=== PATIENT | male | born 1950 | race Caucasian/White ===

== ENCOUNTER 2018-12-07 17:48 | Inpatient (IN) | payer MEDICARE, MEDICAID ==
[2018-12-07 17:48] VITALS: BMI 47.1
[2018-12-07] MEDS ORDERED: Digoxin 500 mcg/2ml (0.5 mg/2ml) Inj ONE (18:19)
[2018-12-07] MEDS ORDERED: Sodium Chloride 0.9% 500 ML IV ONE (18:26)
[2018-12-07] MEDS ORDERED: Digoxin 500 mcg/2ml (0.5 mg/2ml) Inj IVP ONE (18:29)
[2018-12-07 18:43] LABS: BASO # 0.1 K/uL (0.0-0.2); BASO % 0.4 % (0.0-2.0); EOS # 0.1 K/uL (0.0-0.7); HEMOGLOBIN 15.1 g/dL (12.0-18.0); LYMPH # 0.8 K/uL (1.0-4.3); LYMPH % 5.7 % (20.0-40.0); MEAN CELL VOLUME 81.8 fL (80.0-94.0); MEAN CORPUSCULAR HEMOGLOBIN 25.4 pg (27.0-31.0); MONO # 0.3 K/uL (0.0-0.8); MONO % 2.3 % (0.0-10.0); NEUT # 13.4 K/uL (1.8-7.0); NEUT % 90.6 % (50.0-75.0); NRBC % 0.1 % (0.0-2.0); PLATELET COUNT 328 K/uL (130-400); RBC 5.95 Mil/uL (4.40-5.90); RED CELL DISTRIBUTION WIDTH 17.6 % (11.5-14.5); WHITE BLOOD COUNT 14.8 K/uL (4.8-10.8)
[2018-12-07 18:51] LABS: INR 1.6
[2018-12-07 18:56] LABS: ALB/GLOB RATIO 1.4 (1.0-2.1); ALBUMIN 4.2 g/dL (3.5-5.0); ALT/SGPT 30 U/L (21-72); AST/SGOT 33 U/L (17-59); BLOOD UREA NITROGEN 28 mg/dL (9-20); GFR NON-AFRICAN AMERICAN 43
--- NOTE | 2018-12-07 18:57 | RAD ---
Date of service: 12/07/2018 HISTORY: chest portable COMPARISON: No prior. FINDINGS: LUNGS: Abnormal opacity at right lung base. Pleural-based opacity lateral mid left lung. PLEURA: Small bilateral pleural effusions. Small to moderate left pneumothorax. CARDIOVASCULAR: No aortic atherosclerotic calcification present. Normal cardiac size. No pulmonary vascular congestion. OSSEOUS STRUCTURES: No significant abnormalities. VISUALIZED UPPER ABDOMEN: Normal. OTHER FINDINGS: None. IMPRESSION: Small to moderate left pneumothorax. Small bilateral pleural effusion. Abnormal opacity at right base. Rule out pneumonia. Smooth pleural based opacity mid lateral left lung common nonspecific. Follow-up advised. Findings were discussed by telephone with Dr. Henriquez at 6:50 p.m. on 12/07/2018.
[2018-12-07 19:07] LABS: B-TYPE NATRIURETIC PEPTIDE 377 pg/mL (0-900)
[2018-12-07 19:19] LABS: BANDS 5 % (0-2); LYMPHOCYTE 5 % (20-40); MONOCYTE 7 % (0-10); NEUTROPHIL 83 % (50-75); TOTAL CELLS COUNTED 100
[2018-12-07 19:21] LABS: MICROCYTOSIS SLIGHT; PLATELET ESTIMATE NORMAL (NORMAL)
[2018-12-07 19:22] LABS: LARGE PLATELETS PRESENT; PLATELET CLUMPS PRESENT
--- NOTE | 2018-12-07 19:38 | C.PDOC ---
History Of Present Illness 68 year old male with PMHx of CHF, HTN, GERD, diabetes and Afib on Coumadin and Digoxin presents to the ED complaining of shortness of breath for the last 24 hours. Also complains of palpitations, rapid heartbeat, and vomiting for one day. Reports compliance with medications. Denies any diarrhea, abdominal pain, fever, or chills. Time Seen by Provider: 12/07/18 18:25 Chief Complaint (Nursing): Shortness Of Breath History Per: Patient History/Exam Limitations: no limitations Onset/Duration Of Symptoms: Days (1) Current Symptoms Are (Timing): Still Present Current Respiratory Medications: See Home Med List Associated Symptoms: Other (vomiting, palpitations). denies: Fever, Chills Additional History Per: Prior Records Past Medical History Reviewed: Historical Data, Nursing Documentation, Vital Signs Vital Signs: Last Vital Signs Temp 98.3 F 12/07/18 17:56 Pulse 120 H 12/07/18 19:15 Resp 22 12/07/18 19:15 BP 98/42 L 12/07/18 19:15 Pulse Ox 100 12/07/18 19:15 - Medical History PMH: Atrial Fibrillation, CHF, HTN, Peripheral Edema Surgical History: Denies: Pacemaker Other Surgeries: Hx of surgeries - [facility] Procedures CORONAR ARTERIOGR-2 CATH (06/20/15) LEFT HEART CARDIAC CATH (06/20/15) LT HEART ANGIOCARDIOGRAM (06/20/15) Family History: States: No Known Family Hx - Social History Hx Alcohol Use: No Hx Substance Use: No - Immunization History Hx Tetanus Toxoid Vaccination: No Hx Influenza Vaccination: No Hx Pneumococcal Vaccination: No Review Of Systems Constitutional: Negative for: Fever, Chills Cardiovascular: Positive for: Palpitations Respiratory: Positive for: Shortness of Breath Gastrointestinal: Positive for: Vomiting. Negative for: Abdominal Pain, Diarrhea Physical Exam - Physical Exam Appears: Non-toxic, Other (acutely ill, acute short of breath ) Skin: No Normal Color, No Rash, Other (dusky colored skin ) Head: Atraumatic Eye(s): bilateral: Normal Inspection Neck: Supple Chest: Symmetrical Cardiovascular: Rhythm Irregular (160/170 rapid afib ) Respiratory: Rales (B/L rales to apices ) Gastrointestinal/Abdominal: Soft, No Tenderness, No Guarding, No Rebound Neurological/Psych: Oriented x3, Normal Speech Gait: Steady ED Course And Treatment - Laboratory Results Result Diagrams: 12/07/18 18:39 12/07/18 18:39 Lab Results: PT 17.0 SECONDS (9.7-12.2) H 12/07/18 18:39 INR 1.6 12/07/18 18:39 APTT 29 SECONDS (21-34) 12/07/18 18:39 Troponin I < 0.0120 ng/mL (0.00-0.120) 12/07/18 18:39 NT-Pro-B Natriuret Pep 377 pg/mL (0-900) 12/07/18 18:39 Total Bilirubin 0.8 mg/dL (0.2-1.3) 12/07/18 18:39 AST 33 U/L (17-59) 12/07/18 18:39 ALT 30 U/L (21-72) 12/07/18 18:39 Alkaline Phosphatase 76 U/L (38-126) 12/07/18 18:39 Total Protein 7.3 g/dL (6.3-8.3) 12/07/18 18:39 Albumin 4.2 g/dL (3.5-5.0) 12/07/18 18:39 Globulin 3.0 gm/dL (2.2-3.9) 12/07/18 18:39 Albumin/Globulin Ratio 1.4 (1.0-2.1) 12/07/18 18:39 O2 Sat by Pulse Oximetry: 100 (RA) Pulse Ox Interpretation: Normal Disposition - Disposition Forms: [facility] (Chinese) - Scribe Statement The provider has reviewed the documentation as recorded by the Scribkathleen Montgomery All medical record entries made by the Yrisibe were at my direction and personall y dictated by me. I have reviewed the chart and agree that the record accurately reflects my personal performance of the history, physical exam, medical decision making, and the department course for this patient. I have also personally directed, reviewed, and agree with the discharge instructions and disposition.
--- NOTE | 2018-12-07 19:40 | C.PDOC ---
History Of Present Illness 68 year old male with PMHx of CHF, HTN, enlarged prostate, diabetes and Afib on Coumadin and Digoxin presents to the ED complaining of shortness of breath for the last 24 hours. Also complains of palpitations, rapid heartbeat, and vomiting for one day. Reports compliance with medications. Denies any diarrhea, abdominal pain, fever, or chills. Time Seen by Provider: 12/07/18 18:25 Chief Complaint (Nursing): Shortness Of Breath History Per: Patient History/Exam Limitations: no limitations Onset/Duration Of Symptoms: Days (1) Current Symptoms Are (Timing): Still Present Current Respiratory Medications: See Home Med List Associated Symptoms: Heart Racing, Other (palpitations, vomiting ). denies: Fever, Chills Past Medical History Reviewed: Historical Data, Nursing Documentation, Vital Signs Vital Signs: Last Vital Signs Temp 98.3 F 12/07/18 17:56 Pulse 120 H 12/07/18 19:15 Resp 22 12/07/18 19:15 BP 98/42 L 12/07/18 19:15 Pulse Ox 100 12/07/18 19:15 - Medical History PMH: Atrial Fibrillation, CHF, HTN, Peripheral Edema Surgical History: Denies: Pacemaker Other Surgeries: Hx of surgeries - [facility] Procedures CORONAR ARTERIOGR-2 CATH (06/20/15) LEFT HEART CARDIAC CATH (06/20/15) LT HEART ANGIOCARDIOGRAM (06/20/15) Family History: States: No Known Family Hx - Social History Hx Alcohol Use: No Hx Substance Use: No - Immunization History Hx Tetanus Toxoid Vaccination: No Hx Influenza Vaccination: No Hx Pneumococcal Vaccination: No Review Of Systems Constitutional: Negative for: Fever, Chills Cardiovascular: Positive for: Palpitations, Other (heart racing) Respiratory: Positive for: Shortness of Breath Gastrointestinal: Positive for: Vomiting. Negative for: Abdominal Pain, D iarrhea Physical Exam - Physical Exam Appears: Non-toxic, Other (acutely ill, acute shortness of breath) Skin: No Normal Color (dusky colored skin) Head: Normacephalic Eye(s): bilateral: Normal Inspection Nose: Normal Oral Mucosa: Moist Neck: Supple Chest: Symmetrical Cardiovascular: Other (160-170 rapid afib ) Respiratory: Rales (B/L rales to apices ), No Rhonchi, No Wheezing Gastrointestinal/Abdominal: Soft, No Tenderness, No Guarding, No Rebound Neurological/Psych: Oriented x3, Normal Speech Gait: Steady ED Course And Treatment - Laboratory Results Result Diagrams: 12/07/18 18:39 12/07/18 18:39 Lab Results: PT 17.0 SECONDS (9.7-12.2) H 12/07/18 18:39 INR 1.6 12/07/18 18:39 APTT 29 SECONDS (21-34) 12/07/18 18:39 Troponin I < 0.0120 ng/mL (0.00-0.120) 12/07/18 18:39 NT-Pro-B Natriuret Pep 377 pg/mL (0-900) 12/07/18 18:39 Total Bilirubin 0.8 mg/dL (0.2-1.3) 12/07/18 18:39 AST 33 U/L (17-59) 12/07/18 18:39 ALT 30 U/L (21-72) 12/07/18 18:39 Alkaline Phosphatase 76 U/L (38-126) 12/07/18 18:39 Total Protein 7.3 g/dL (6.3-8.3) 12/07/18 18:39 Albumin 4.2 g/dL (3.5-5.0) 12/07/18 18:39 Globulin 3.0 gm/dL (2.2-3.9) 12/07/18 18:39 Albumin/Globulin Ratio 1.4 (1.0-2.1) 12/07/18 18:39 Lab Interpretation: Abnormal (WBC 14.8 with 90 segs, BUN 28, Cr 1.6, Normal troponin and BNP, Dig level 1.2, INR 1.6) ECG: Interpreted By Me ECG Rhythm: Atrial Fibrillation (with rapid ventricular rate. Inferior and sep angle infarcts) O2 Sat by Pulse Oximetry: 100 Pulse Ox Interpretation: Normal (on NRB) - Radiology CXR: Viewed By Me, Read By Radiologist (Bilateral pleural effusions with small left pneumothorax) Progress Note: Patient treated in ED with Digoxin 0.5mg IVP, Lasix 40mg IVP, NSS 500ml and Cardizem 10mg IVP. Continued to have a heart rate of 160-170 for 30 minutes associated with hypotension. Gradually heart rate improved to 110-120 but BP remains 95/60. Barbour inserted and initially drained 300ml of urine. No additional urine output noted. 7:00 pm Case discussed with Dr Morales and tressa sesay was seen in ED by Dr Rosenberg (life science technical officer). Condition now stable and somewhat improved. Patient to be admitted to tele. Orders given to nursing by Dr Morales. Reevaluation Time: 19:48 Reassessment Condition: Improved (BP 98/65, HR 105, Barbour draining clear urine.) Critical Care Time - Critical Care Note Total Time (in mins): 90 Documented critical care: time excludes all time spent performing seperately billable procedures. Disposition - Disposition Disposition: HOSPITALIZED Disposition Time: 19:50 Condition: IMPROVED - POA Present On Arrival: None - Clinical Impression Clinical Impression: A-fib, Pleural effusion, Pneumothorax on left - Scribe Statement The provider has reviewed the documentation as recorded by the Scribe Dea Montgomery All medical record entries made by the Scribe were at my direction and per sonally dictated by me. I have reviewed the chart and agree that the record accurately reflects my personal performance of the history, physical exam, medical decision making, and the department course for this patient. I have also personally directed, reviewed, and agree with the discharge instructions and disposition.
[2018-12-07] MEDS ORDERED: diltiaZEM 60 mg ER Cap PO SCH (22:00)
[2018-12-07] MEDS: (Novolog) Insulin Aspart, Recombinant 100 u/ml 10 ml vial SC SCH (22:27)
[2018-12-08 02:08] LABS: CK-MB 1.06 ng/mL (0.0-3.38); TROPONIN I 0.071 ng/mL (0.00-0.120)
[2018-12-08] MEDS ORDERED: Glucagon Recombinant 1 mg Inj IM PRN (07:01)
[2018-12-08] MEDS ORDERED: Dextrose 50% SYRINGE Inj (50 ml) IV PRN (07:01)
[2018-12-08] MEDS ORDERED: LINACLOTIDE 75 MCG PO SCH ×3 (07:30)
--- NOTE | 2018-12-08 07:34 | CP.PCM.CON ---
History of Present Illness - History of Present Illness History of Present Illness: I was asked to see patient by Dr Morales Patient seen 12/08/18 0732 Patient is a 68 year old male with HTN, COPD, chronic atrial fibrillation who presents with dsypnea. Patient had a cardiac cath in 2014 revealing nonobstructive CAD and normal LV function. Patient presents with acute dsypnea. found to be in afib with RVR. Patient responded to cardizem. currently less dyspnea. Review of Systems - Constitutional Constitutional: absent: As Per HPI, Anorexia, Chills, Daytime Sleepiness, Excessive Sweating, Fatigue, Fever, Frequent Falls, Headache, Increased Appe tite, Lethargy, Malaise, Night Sweats, Snoring, Sleep Apnea, Weight Gain, Weight Loss, Weakness, Other - EENT Eyes: absent: As Per HPI, Blind Spots, Blurred Vision, Change in Vision, Decreased Night Vision, Diplopia, Discharge, Dry Eye, Exophthalmos, Floaters, Irritation, Itchy Eyes, Loss of Peripheral Vision, Pain, Photophobia, Requires Corrective Lenses, Sees Flashes, Spots in Vision, Tunnel Vision, Other Visual Disturbances, Loss of Vision, Other Ears: absent: As Per HPI, Decreased Hearing, Ear Discharge, Ear Pain, Tinnitus, Abnormal Hearing, Disequilibrium, Dizziness, Other Nose/Mouth/Throat: absent: As Per HPI, Epistaxis, Nasal Congestion, Nasal Discharge, Nasal Obstruction, Nasal Trauma, Nose Pain, Post Nasal Drip, Sinus Pain, Sinus Pressure, Bleeding Gums, Change in Voice, Dental Pain, Dry Mouth, Dysphagia, Halitosis, Hoarsness, Lip Swelling, Mouth Lesions, Mouth Pain, Odynophagia, Sore Throat, Throat Swelling, Tongue Swelling, Facial Pain, Neck Pain, Neck Mass, Other - Cardiovascular Cardiovascular: Dyspnea, Palpitations - Respiratory Respiratory: Dyspnea - Gastrointestinal Gastrointestinal: absent: As Per HPI, Abdominal Pain, Belching, Bloating, Change in Bowel Habits, Change in Stool Character, Coffee Ground Emesis, Constipation, Cramping, Diarrhea, Dyspepsia, Dysphagia, Early Satiety, Excessive Flatus, Fecal Incontinence, Heartburn, Hematemesis, Hematochezia, Loose Stools, Melena, Nausea, Odynophagia, Temesmus, Vomiting, Other - Genitourinary Genitourinary: absent: As Per HPI, Change in Urinary Stream, Difficulty Urina ting, Dysuria, Flank Pain, Hematuria, Pyuria, Nocturia, Urinary Incontinence, Urinary Frequency, Urinary Hesitance, Urinary Urgency, Voiding Freq/Small Amts, Freq UTI, Hx Renal/Bladder Calculi, Hx /Renal Surgery, Bladder Distension, Other - Musculoskeletal Musculoskeletal: absent: As Per HPI, Abnormal Gait, Arthralgias, Atrophy, Back Pain, Deformity, Joint Swelling, Limited Range of Motion, Loss of Height, Muscle Cramps, Muscle Weakness, Myalgias, Neck Pain, Numbness, Radiating Pain into Limb, Stiffness, Tingling, Other - Integumentary Integumentary: absent: As Per HPI, Acne, Alopecia, Bleeding Lesions, Change in Hair, Change in Nails, Change in Pigmentation, Changing Lesions, Dry Skin, Erythema, Furuncle, Hirsutism, Lesions, New Lesions, Non-Healing Lesions, Photosensitivity, Pruritus, Rash, Skin Pain, Skin Ulcer, Sores, Striae, Swelling, Unusual Bruising, Wounds, Jaundice, Other - Neurological Neurological: absent: As Per HPI, Abnormal Gait, Abnormal Hearing, Abnormal Movements, Abnormal Speech, Behavioral Changes, Burning Sensations, Confusion, Convulsions, Disequilibrium, Dizziness, Numbness, Focal Weakness, Frequent Falls, Headaches, Lack of Coordination, Loss of Vision, Memory Loss, Paresthesias, Radicular Pain, Restless Legs, Sensory Deficit, Syncope, Tingling, Tremor, Vertigo, Weakness, Other Visual Disturbances, Other - Psychiatric Psychiatric: absent: As Per HPI, Abnormal Sleep Pattern, Anhedonia, Anxiety, Au ditory Hallucinations, Behavioral Changes, Change in Appetite, Change in Libido, Confusion, Depression, Difficulty Concentrating, Hallucinations, Homicidal Ideation, Hopelessness, Irritability, Memory Loss, Mood Swings, Panic Attacks, Paranoia, Suicidal Ideation, Visual Hallucinations, Tactile Hallucinations, Other - Endocrine Endocrine: absent: As Per HPI, Change in Body Appearance, Change in Libido, Cold Intolorance, Deepening of Voice, Excessive Sweating, Fatigue, Flushing, Heat Intolorance, Increase in Ring/Shoe/Hat Size, Palpitations, Polydipsia, Kayode yphagia, Polyuria, Other - Hematologic/Lymphatic Hematologic: absent: As Per HPI, Easy Bleeding, Easy Bruising, Lymphadenopathy, Other Past Patient History - Past Medical History & Family History Past Medical History?: Yes - Past Social History Smoking Status: Former Smoker - CARDIAC Hx Atrial Fibrillation: Yes Hx Congestive Heart Failure: Yes Hx Hypertension: Yes Hx Pacemaker: No Hx Peripheral Edema: Yes - PULMONARY Hx Respiratory Disorders: Yes Hx Asthma: Yes - NEUROLOGICAL Hx Neurological Disorder: No Hx Paralysis: No - HEENT Hx HEENT Problems: No - RENAL Hx Chronic Kidney Disease: No - ENDOCRINE/METABOLIC Hx Diabetes Mellitus Type 2: Yes - HEMATOLOGICAL/ONCOLOGICAL Hx Blood Transfusions: No Hx Blood Transfusion Reaction: No - INTEGUMENTARY Hx Dermatological Problems: No - MUSCULOSKELETAL/RHEUMATOLOGICAL Hx Musculoskeletal Disorders: Yes Hx Falls: No Hx Gout: Yes - GASTROINTESTINAL Hx Nausea: Yes - GENITOURINARY/GYNECOLOGICAL Hx Prostate Problems: Yes - PSYCHIATRIC Hx Substance Use: No - SURGICAL HISTORY Hx Surgeries: Yes Hx Orthopedic Surgery: Yes (LEFT LEG) - ANESTHESIA Hx Anesthesia: Yes Hx Anesthesia Reactions: No Hx Malignant Hyperthermia: No Meds Allergies/Adverse Reactions: Allergies Allergy/AdvReac Type Severity Reaction Status Date / Time No Known Allergies Allergy Verified 12/07/18 17:56 - Medications Medications: Current Medications Allopurinol (Zyloprim) 300 mg PO DAILY [facility] Carvedilol (Coreg) 6.25 mg PO BID [facility] Colchicine (Colocrys) 0.6 mg PO DAILY [facility] Dextrose (Dextrose 50% Inj) 0 ml IV STAT PRN; Protocol PRN Reason: Hypoglycemia Protocol Dextrose (Glutose 15) 0 gm PO ONCE PRN; Protocol PRN Reason: Hypoglycemia Protocol Digoxin (Lanoxin) 0.25 mg IVP Q24H [facility] Diltiazem HCl (Cardizem) 30 mg PO Q8 [facility] Last Admin: 12/08/18 05:56 Dose: 30 mg Finasteride (Proscar) 5 mg PO DAILY [facility] Furosemide (Lasix) 20 mg IVP BID [facility] Glucagon (Glucagen Diagnostic Kit) 0 mg IM STAT PRN; Protocol PRN Reason: Hypoglycemia Protocol Home Med (Linaclotide [Linzess]) 75 mcg PO ACB [facility] Home Med (Linagliptin [Tradjenta]) 5 mg PO DAILY [facility] Dextrose (Dextrose 5% In Water 1000 Ml) 1,000 mls @ 0 mls/hr IV .Q0M PRN; Protocol PRN Reason: Hypoglycemia Protocol Insulin Aspart (Novolog) 0 unit SC ACHS [facility]; Protocol Last Admin: 12/07/18 22:27 Dose: Not Given Lisinopril (Zestril) 20 mg PO DAILY [facility] Metformin HCl (Glucophage) 500 mg PO BID [facility] Pantoprazole Sodium (Protonix Ec Tab) 40 mg PO DAILY [facility] Tamsulosin HCl (Flomax) 0.4 mg PO DAILY [facility] Warfarin Sodium (Coumadin) 5 mg PO DAILY [facility] Physical Exam - Constitutional Appears: Non-toxic - Head Exam Head Exam: NORMAL INSPECTION - Eye Exam Eye Exam: Normal appearance - ENT Exam ENT Exam: Mucous Membranes Moist - Neck Exam Neck exam: Positive for: Full Rom - Respiratory Exam Respiratory Exam: Decreased Breath Sounds - Cardiovascular Exam Cardiovascular Exam: REGULAR RHYTHM - GI/Abdominal Exam GI & Abdominal Exam: Normal Bowel Sounds - Rectal Exam Rectal Exam: Deferred - Extremities Exam Extremities exam: Positive for: pedal edema - Back Exam Back exam: NORMAL INSPECTION - Neurological Exam Neurological exam: Alert, Oriented x3 - Psychiatric Exam Psychiatric exam: Normal Affect - Skin Skin Exam: Normal Color Results - Vital Signs Recent Vital Signs: Last Vital Signs Temp 98.0 F 12/07/18 23:55 Pulse 74 12/08/18 05:55 Resp 20 12/08/18 05:55 BP 121/67 12/08/18 05:55 Pulse Ox 98 12/08/18 05:55 - Labs Result Diagrams: 12/07/18 18:39 12/07/18 18:39 Labs: Laboratory Results - last 24 hr 12/07/18 12/07/18 12/07/18 18:29 18:39 18:39 WBC 14.8 H RBC 5.95 H Hgb 15.1 Hct 48.3 MCV 81.8 MCH 25.4 L MCHC 31.0 L RDW 17.6 H Plt Count 328 MPV 9.0 Neut % (Auto) 90.6 H Lymph % (Auto) 5.7 L Reagan % (Auto) 2.3 Eos % (Auto) 1.0 Baso % (Auto) 0.4 Neut # (Auto) 13.4 H Lymph # (Auto) 0.8 L Reagan # (Auto) 0.3 Eos # (Auto) 0.1 Baso # (Auto) 0.1 Neutrophils % (Manual) 83 H Band Neutrophils % 5 H Lymphocytes % (Manual) 5 L Monocytes % (Manual) 7 Platelet Estimate Normal Plt Clumps, EDTA Present Large Platelets Present Microcytosis (manual) Slight PT 17.0 H INR 1.6 APTT 29 Sodium Potassium Chloride Carbon Dioxide Anion Gap BUN Creatinine Est GFR ( Amer) Est GFR (Non-Af Amer) POC Glucose (mg/dL) 162 H Random Glucose Calcium Total Bilirubin AST ALT Alkaline Phosphatase Total Creatine Kinase CK-MB (Mass) Troponin I NT-Pro-B Natriuret Pep Total Protein Albumin Globulin Albumin/Globulin Ratio Digoxin 12/07/18 12/07/18 12/07/18 18:39 18:39 21:55 WBC RBC Hgb Hct MCV MCH MCHC RDW Plt Count MPV Neut % (Auto) Lymph % (Auto) Reagan % (Auto) Eos % (Auto) Baso % (Auto) Neut # (Auto) Lymph # (Auto) Reagan # (Auto) Eos # (Auto) Baso # (Auto) Neutrophils % (Manual) Band Neutrophils % Lymphocytes % (Manual) Monocytes % (Manual) Platelet Estimate Plt Clumps, EDTA Large Platelets Microcytosis (manual) PT INR APTT Sodium 138 Potassium 4.9 Chloride 99 Carbon Dioxide 28 Anion Gap 16 BUN 28 H Creatinine 1.6 H Est GFR ( Amer) 52 Est GFR (Non-Af Amer) 43 POC Glucose (mg/dL) 152 H Random Glucose 166 H Calcium 9.0 Total Bilirubin 0.8 AST 33 ALT 30 Alkaline Phosphatase 76 Total Creatine Kinase CK-MB (Mass) Troponin I < 0.0120 NT-Pro-B Natriuret Pep 377 Total Protein 7.3 Albumin 4.2 Globulin 3.0 Albumin/Globulin Ratio 1.4 Digoxin 1.2 12/08/18 12/08/18 00:46 06:20 WBC RBC Hgb Hct MCV MCH MCHC RDW Plt Count MPV Neut % (Auto) Lymph % (Auto) Reagan % (Auto) Eos % (Auto) Baso % (Auto) Neut # (Auto) Lymph # (Auto) Reagan # (Auto) Eos # (Auto) Baso # (Auto) Neutrophils % (Manual) Band Neutrophils % Lymphocytes % (Manual) Monocytes % (Manual) Platelet Estimate Plt Clumps, EDTA Large Platelets Microcytosis (manual) PT INR APTT Sodium Potassium Chloride Carbon Dioxide Anion Gap BUN Creatinine Est GFR ( Amer) Est GFR (Non-Af Amer) POC Glucose (mg/dL) 136 H Random Glucose Calcium Total Bilirubin AST ALT Alkaline Phosphatase Total Creatine Kinase 53 L CK-MB (Mass) 1.06 Troponin I 0.0710 NT-Pro-B Natriuret Pep Total Protein Albumin Globulin Albumin/Globulin Ratio Digoxin - EKG Data EKG Interpreted by: Myself Assessment & Plan (1) A-fib Assessment and Plan: will check echocardiogram to reassess LV function. maintain cardizem. will consider change to NOAC Status: Acute (2) Hypertension Assessment and Plan: well controlled Status: Acute
[2018-12-08 07:50] LABS: INR 1.8
[2018-12-08 08:04] LABS: BASO % 0.1 % (0.0-2.0); EOS # 0.1 K/uL (0.0-0.7); EOS % 0.5 % (0.0-4.0); LYMPH # 1.7 K/uL (1.0-4.3); LYMPH % 7.2 % (20.0-40.0); MEAN CELL VOLUME 82.3 fL (80.0-94.0); MEAN CORPUSCULAR HEMOGLOBIN 25.7 pg (27.0-31.0); MEAN CORPUSCULAR HGB CONC 31.2 g/dL (33.0-37.0); MEAN PLATELET VOLUME 9.4 fL (7.2-11.7); MONO # 1.6 K/uL (0.0-0.8); NEUT # 19.8 K/uL (1.8-7.0); NEUT % 85.2 % (50.0-75.0); PLATELET COUNT 268 K/uL (130-400); RBC 5.06 Mil/uL (4.40-5.90); RED CELL DISTRIBUTION WIDTH 17.1 % (11.5-14.5)
[2018-12-08 08:13] LABS: WHITE BLOOD COUNT 23.2 K/uL (4.8-10.8)
[2018-12-08 08:14] LABS: CALCIUM 8.7 mg/dl (8.6-10.4); CK-MB 1.03 ng/mL (0.0-3.38); TROPONIN I 0.042 ng/mL (0.00-0.120)
[2018-12-08] MEDS: (Novolog) Insulin Aspart, Recombinant 100 u/ml 10 ml vial SC SCH ×3 (09:16→22:17)
--- NOTE | 2018-12-08 09:19 | CP.PCM.PN ---
Subjective - Date & Time of Evaluation Date of Evaluation: 12/08/18 Time of Evaluation: 09:15 - Subjective Subjective: Progress note. Attending: Dr. Morales. Pt seen and examined at bedside. No acute distress. No events overnight. Cardiology workup in progress. SOB is better, denies chest pain. Objective - Vital Signs/Intake and Output Vital Signs (last 24 hours): Temp Pulse Resp BP Pulse Ox 97.2 F L 69 20 107/62 94 L 12/08/18 08:36 12/08/18 08:36 12/08/18 08:36 12/08/18 08:36 12/08/18 08:36 Intake and Output: 12/08/18 12/08/18 06:59 18:59 Output Total 500 Balance -500 - Medications Medications: Current Medications Allopurinol (Zyloprim) 300 mg PO DAILY [facility] Carvedilol (Coreg) 6.25 mg PO BID [facility] Colchicine (Colocrys) 0.6 mg PO DAILY [facility] Dextrose (Dextrose 50% Inj) 0 ml IV STAT PRN; Protocol PRN Reason: Hypoglycemia Protocol Dextrose (Glutose 15) 0 gm PO ONCE PRN; Protocol PRN Reason: Hypoglycemia Protocol Digoxin (Lanoxin) 0.25 mg IVP Q24H [facility] Diltiazem HCl (Cardizem) 30 mg PO Q8 [facility] Last Admin: 12/08/18 05:56 Dose: 30 mg Finasteride (Proscar) 5 mg PO DAILY [facility] Furosemide (Lasix) 20 mg IVP BID [facility] Glucagon (Glucagen Diagnostic Kit) 0 mg IM STAT PRN; Protocol PRN Reason: Hypoglycemia Protocol Home Med (Linaclotide [Linzess]) 75 mcg PO ACB [facility] Home Med (Linagliptin [Tradjenta]) 5 mg PO DAILY [facility] Dextrose (Dextrose 5% In Water 1000 Ml) 1,000 mls @ 0 mls/hr IV .Q0M PRN; Protocol PRN Reason: Hypoglycemia Protocol Insulin Aspart (Novolog) 0 unit SC ACHS [facility]; Protocol Last Admin: 12/07/18 22:27 Dose: Not Given Lisinopril (Zestril) 20 mg PO DAILY [facility] Metformin HCl (Glucophage) 500 mg PO BID [facility] Pantoprazole Sodium (Protonix Ec Tab) 40 mg PO DAILY [facility] Tamsulosin HCl (Flomax) 0.4 mg PO DAILY [facility] Warfarin Sodium (Coumadin) 5 mg PO DAILY [facility] - Labs Labs: 12/08/18 07:32 12/08/18 07:32 PT 20.0 SECONDS (9.7-12.2) H 12/08/18 07:32 INR 1.8 12/08/18 07:32 APTT 33 SECONDS (21-34) 12/08/18 07:32 - Constitutional Appears: Non-toxic, No Acute Distress - Head Exam Head Exam: ATRAUMATIC, NORMAL INSPECTION, NORMOCEPHALIC - Eye Exam Eye Exam: EOMI - ENT Exam ENT Exam: Mucous Membranes Moist - Neck Exam Neck Exam: Full ROM, Normal Inspection - Respiratory Exam Respiratory Exam: Rales. absent: Respiratory Distress - Cardiovascular Exam Cardiovascular Exam: +S1, +S2 - GI/Abdominal Exam GI & Abdominal Exam: Soft, Normal Bowel Sounds. absent: Tenderness - Extremities Exam Extremities Exam: absent: Normal Inspection Additional comments: positive peripheral venous dx - Neurological Exam Neurological Exam: Alert, Awake, CN II-XII Intact, Oriented x3 - Psychiatric Exam Psychiatric exam: Normal Affect, Normal Mood - Skin Skin Exam: Dry, Intact, Normal Color, Warm Assessment and Plan - Assessment and Plan (Free Text) Assessment: This is a 68 yo male, originally from [place], with past medical hx of CHF, HTN, BPH, DM, a fib, presenting with 1. Shortness of breath -likely secondary to acute chf/pulmonary edema -echo pending -cardiology consult. Dr. Sevilla. recs appreciated. -initial concern for pneumothorax on cxr, but on chest ct, no pneumothorax, likely trapped lung 2. Pulmonary edema -furosemide 20 mg IV BID 3. Heart failure -echo pending -coreg 6.25 BID -lisinopril 20 mg daily -digoxin IV daily -digoxin level -cardiology consult. Dr. Sevilla. recs appreciated. 4. hx of DM -linagliptin daily -ISS -hypoglycemia protocol -metformin 500 mg bid - 5. hx of BPH -finasteride 5 mg daily -flomax .4 mg daily 6. GI/DVT -scds -protonix 40 daily -warfarin daily discussed with Dr. Morales.
[2018-12-08 09:22] LABS: BANDS 6 % (0-2); LYMPHOCYTE 7 % (20-40); MONOCYTE 4 % (0-10); NEUTROPHIL 83 % (50-75); PLATELET ESTIMATE NORMAL (NORMAL); TOTAL CELLS COUNTED 100
[2018-12-08] MEDS ORDERED: Home Med 1 UNIT (Linagliptin [Tradjenta] 5 MG) PO SCH (10:00)
[2018-12-08] MEDS ORDERED: Home Med 1 UNIT (Colchicine [Colchicine] 0.6 MG) PO SCH (10:00)
[2018-12-08] MEDS ORDERED: Digoxin 500 mcg/2ml (0.5 mg/2ml) Inj IVP SCH (10:00)
[2018-12-08] MEDS ORDERED: Home Med 1 UNIT (Dexlansoprazole [Dexilant] 60 MG) PO SCH (10:00)
[2018-12-08] MEDS: Pantoprazole 40 mg EC Tab PO SCH (10:14)
--- NOTE | 2018-12-08 12:28 | CT ---
Date of service: 12/07/2018 PROCEDURE: CT Chest without contrast HISTORY: left pneumothorax COMPARISON: None available. TECHNIQUE: Contiguous axial images were obtained through the chest without intravenous contrast enhancement. Sagittal and coronal reconstructions were performed. Radiation dose: Total exam DLP = 1144.4 mGy-cm. This CT exam was performed using one or more of the following dose reduction techniques: Automated exposure control, adjustment of the mA and/or kV according to patient size, and/or use of iterative reconstruction technique. FINDINGS: LUNGS: Multifocal pneumonia particularly in the right lower lobe, right middle lobe and posterior lateral left lower lobe. MEDIASTINUM: Unremarkable thoracic aorta. No aneurysm. Normal sized heart. Main pulmonary artery unremarkable. No vascular congestion. No lymphadenopathy. Aortic calcifications. PLEURA: Bilateral calcified pleural plaquing, left greater than right possibly related to previous sclerotherapy or asbestos exposure. No evidence of pneumothorax. BONES: No fracture. No destructive lesion. UPPER ABDOMEN: Fatty liver. Left adrenal nodule foot correlation with noncontrast gradient echo MRI is recommended. Small hiatal hernia. Large left renal cyst. Colonic diverticulosis. OTHER FINDINGS: None. IMPRESSION: Bilateral calcified pleural plaquing, left greater than right possibly related to previous sclerotherapy or asbestos exposure. No evidence of pneumothorax. Multifocal pneumonia particularly in the right lower lobe, right middle lobe and posterior lateral left lower lobe.
[2018-12-08] MEDS: Digoxin 500 mcg/2ml (0.5 mg/2ml) Inj IVP SCH (18:14)
[2018-12-08] MEDS: Azithromycin 500 MG in Sodium Chloride 0.9% 250 ML IVPB SCH (18:16)
--- NOTE | 2018-12-08 20:03 | CP.PCM.CON ---
History of Present Illness - History of Present Illness History of Present Illness: 68 year old male with PMHx of CHF, HTN, enlarged prostate, diabetes and Afib on Coumadin and Digoxin presents to the ED complaining of shortness of breath for the last 24 hours. Also complains of palpitations, rapid heartbeat, and vomiting for one day. Found to have bilateral pneumonia and CHF Dr Sevilla on board cultures sent IV Rx in progress - Medical History PMH: Atrial Fibrillation, CHF, HTN, Peripheral Edema Surgical History: Denies: Pacemaker Other Surgeries: Hx of surgeries - [facility] Procedures CORONAR ARTERIOGR-2 CATH (06/20/15) LEFT HEART CARDIAC CATH (06/20/15) LT HEART ANGIOCARDIOGRAM (06/20/15) Review of Systems - Review of Systems All systems: reviewed and no additional remarkable complaints except - Constitutional Constitutional: As Per HPI - EENT Eyes: absent: As Per HPI, Blind Spots, Blurred Vision, Change in Vision, Decreased Night Vision, Diplopia, Discharge, Dry Eye, Exophthalmos, Floaters, Irritation, Itchy Eyes, Loss of Peripheral Vision, Pain, Photophobia, Requires Corrective Lenses, Sees Flashes, Spots in Vision, Tunnel Vision, Other Visual Disturbances, Loss of Vision, Other Ears: absent: As Per HPI, Decreased Hearing, Ear Discharge, Ear Pain, Tinnitus, Abnormal Hearing, Disequilibrium, Dizziness, Other Nose/Mouth/Throat: absent: As Per HPI, Epistaxis, Nasal Congestion, Nasal Discharge, Nasal Obstruction, Nasal Trauma, Nose Pain, Post Nasal Drip, Sinus Pain, Sinus Pressure, Bleeding Gums, Change in Voice, Dental Pain, Dry Mouth, Dysphagia, Halitosis, Hoarsness, Lip Swelling, Mouth Lesions, Mouth Pain, Odynophagia, Sore Throat, Throat Swelling, Tongue Swelling, Facial Pain, Neck Pain, Neck Mass, Other - Cardiovascular Cardiovascular: As Per HPI - Respiratory Respiratory: As Per HPI, Cough. absent: Hemoptysis - Gastrointestinal Gastrointestinal: absent: As Per HPI, Abdominal Pain, Belching, Bloating, Change in Bowel Habits, Change in Stool Character, Coffee Ground Emesis, Constipation, Cramping, Diarrhea, Dyspepsia, Dysphagia, Early Satiety, Excessive Flatus, Fecal Incontinence, Heartburn, Hematemesis, Hematochezia, Loose Stools, Melena, Nausea, Odynophagia, Temesmus, Vomiting, Other - Genitourinary Genitourinary: absent: As Per HPI, Change in Urinary Stream, Difficulty Urinating, Dysuria, Flank Pain, Hematuria, Pyuria, Nocturia, Urinary Incontinence, Urinary Frequency, Urinary Hesitance, Urinary Urgency, Voiding Freq/Small Amts, Freq UTI, Hx Renal/Bladder Calculi, Hx /Renal Surgery, Bl adder Distension, Other - Musculoskeletal Musculoskeletal: absent: As Per HPI, Abnormal Gait, Arthralgias, Atrophy, Back Pain, Deformity, Joint Swelling, Limited Range of Motion, Loss of Height, Muscle Cramps, Muscle Weakness, Myalgias, Neck Pain, Numbness, Radiating Pain into Limb, Stiffness, Tingling, Other - Integumentary Integumentary: absent: As Per HPI, Acne, Alopecia, Bleeding Lesions, Change in Hair, Change in Nails, Change in Pigmentation, Changing Lesions, Dry Skin, Erythema, Furuncle, Hirsutism, Lesions, New Lesions, Non-Healing Lesions, Photosensitivity, Pruritus, Rash, Skin Pain, Skin Ulcer, Sores, Striae, Swelling, Unusual Bruising, Wounds, Jaundice, Other - Neurological Neurological: absent: As Per HPI, Abnormal Gait, Abnormal Hearing, Abnormal Movements, Abnormal Speech, Behavioral Changes, Burning Sensations, Confusion, Convulsions, Disequilibrium, Dizziness, Numbness, Focal Weakness, Frequent Falls, Headaches, Lack of Coordination, Loss of Vision, Memory Loss, Paresthesias, Radicular Pain, Restless Legs, Sensory Deficit, Syncope, Tingling, Tremor, Vertigo, Weakness, Other Visual Disturbances, Other - Psychiatric Psychiatric: absent: As Per HPI, Abnormal Sleep Pattern, Anhedonia, Anxiety, Auditory Hallucinations, Behavioral Changes, Change in Appetite, Change in Libido, Confusion, Depression, Difficulty Concentrating, Hallucinations, Homicidal Ideation, Hopelessness, Irritability, Memory Loss, Mood Swings, Panic Attacks, Paranoia, Suicidal Ideation, Visual Hallucinations, Tactile Hallucinations, Other - Endocrine Endocrine: absent: As Per HPI, Change in Body Appearance, Change in Libido, Cold Intolorance, Deepening of Voice, Excessive Sweating, Fatigue, Flushing, Heat Intolorance, Increase in Ring/Shoe/Hat Size, Palpitations, Polydipsia, Polyphagia, Polyuria, Other - Hematologic/Lymphatic Hematologic: absent: As Per HPI, Easy Bleeding, Easy Bruising, Lymphadenopathy, Other Past Patient History - Past Medical History & Family History Past Medical History?: Yes - Past Social History Smoking Status: Former Smoker - CARDIAC Hx Atrial Fibrillation: Yes Hx Congestive Heart Failure: Yes Hx Hypertension: Yes Hx Pacemaker: No Hx Peripheral Edema: Yes - PULMONARY Hx Respiratory Disorders: Yes Hx Asthma: Yes - NEUROLOGICAL Hx Neurological Disorder: No Hx Paralysis: No - HEENT Hx HEENT Problems: No - RENAL Hx Chronic Kidney Disease: No - ENDOCRINE/METABOLIC Hx Diabetes Mellitus Type 2: Yes - HEMATOLOGICAL/ONCOLOGICAL Hx Blood Transfusions: No Hx Blood Transfusion Reaction: No - INTEGUMENTARY Hx Dermatological Problems: No - MUSCULOSKELETAL/RHEUMATOLOGICAL Hx Musculoskeletal Disorders: Yes Hx Falls: No Hx Gout: Yes - GASTROINTESTINAL Hx Nausea: Yes - GENITOURINARY/GYNECOLOGICAL Hx Prostate Problems: Yes - PSYCHIATRIC Hx Substance Use: No - SURGICAL HISTORY Hx Surgeries: Yes Hx Orthopedic Surgery: Yes (LEFT LEG) - ANESTHESIA Hx Anesthesia: Yes Hx Anesthesia Reactions: No Hx Malignant Hyperthermia: No Meds Allergies/Adverse Reactions: Allergies Allergy/AdvReac Type Severity Reaction Status Date / Time No Known Allergies Allergy Verified 12/07/18 17:56 - Medications Medications: Current Medications Allopurinol (Zyloprim) 300 mg PO DAILY [facility] Last Admin: 12/08/18 10:13 Dose: 300 mg Carvedilol (Coreg) 6.25 mg PO BID [facility] Last Admin: 12/08/18 18:11 Dose: Not Given Colchicine (Colocrys) 0.6 mg PO DAILY [facility] Last Admin: 12/08/18 10:15 Dose: 0.6 mg Dextrose (Dextrose 50% Inj) 0 ml IV STAT PRN; Protocol PRN Reason: Hypoglycemia Protocol Dextrose (Glutose 15) 0 gm PO ONCE PRN; Protocol PRN Reason: Hypoglycemia Protocol Digoxin (Lanoxin) 0.25 mg IVP Q24H [facility] Last Admin: 12/08/18 18:14 Dose: 0.25 mg Diltiazem HCl (Cardizem) 30 mg PO Q8 [facility] Last Admin: 12/08/18 13:17 Dose: 30 mg Finasteride (Proscar) 5 mg PO DAILY [facility] Last Admin: 12/08/18 10:14 Dose: 5 mg Furosemide (Lasix) 20 mg IVP BID [facility] Last Admin: 12/08/18 18:11 Dose: Not Given Glucagon (Glucagen Diagnostic Kit) 0 mg IM STAT PRN; Protocol PRN Reason: Hypoglycemia Protocol Dextrose (Dextrose 5% In Water 1000 Ml) 1,000 mls @ 0 mls/hr IV .Q0M PRN; Protocol PRN Reason: Hypoglycemia Protocol Ceftriaxone Sodium 1 gm/ (Sodium Chloride) 100 mls @ 100 mls/hr IVPB DAILY [facility]; Protocol Last Admin: 12/08/18 18:15 Dose: 100 mls/hr Azithromycin 500 mg/ Sodium (Chloride) 250 mls @ 250 mls/hr IVPB DAILY [facility]; Protocol Last Admin: 12/08/18 18:16 Dose: 250 mls/hr Insulin Aspart (Novolog) 0 unit SC ACHS [facility]; Protocol Last Admin: 12/08/18 17:01 Dose: Not Given Lisinopril (Zestril) 20 mg PO DAILY [facility] Last Admin: 12/08/18 10:14 Dose: 20 mg Metformin HCl (Glucophage) 500 mg PO BID [facility] Last Admin: 12/08/18 18:11 Dose: Not Given Pantoprazole Sodium (Protonix Ec Tab) 40 mg PO DAILY [facility] Last Admin: 12/08/18 10:14 Dose: 40 mg Sitagliptin Phosphate (Januvia) 25 mg PO DAILY [facility] Tamsulosin HCl (Flomax) 0.4 mg PO DAILY [facility] Last Admin: 12/08/18 10:13 Dose: 0.4 mg Physical Exam - Constitutional Appears: Toxic, In Acute Distress - Head Exam Head Exam: ATRAUMATIC, NORMOCEPHALIC - Eye Exam Eye Exam: PERRL. absent: Scleral icterus Pupil Exam: NORMAL ACCOMODATION - ENT Exam ENT Exam: Mucous Membranes Dry, Normal External Ear Exam, Normal Oropharynx - Neck Exam Neck exam: Negative for: Lymphadenopathy - Respiratory Exam Respiratory Exam: Decreased Breath Sounds, Prolonged Expiratory Phase, Rhonchi - Cardiovascular Exam Cardiovascular Exam: Irregular Rhythm, +S1, +S2 - GI/Abdominal Exam GI & Abdominal Exam: Soft. absent: Diminished Bowel Sounds, Tenderness - Rectal Exam Rectal Exam: Deferred - Exam Exam: NORMAL INSPECTION - Extremities Exam Extremities exam: Negative for: pedal edema - Back Exam Back exam: absent: CVA tenderness (L), CVA tenderness (R), paraspinal tenderness - Neurological Exam Neurological exam: Alert, CN II-XII Intact, Oriented x3, Reflexes Normal - Psychiatric Exam Psychiatric exam: Depressed - Skin Skin Exam: Dry, Intact Results - Vital Signs Recent Vital Signs: Last Vital Signs Temp 97.1 F L 12/08/18 15:00 Pulse 93 H 12/08/18 15:00 Resp 20 12/08/18 15:00 BP 96/53 L 12/08/18 15:00 Pulse Ox 97 12/08/18 15:00 - Labs Result Diagrams: 12/11/18 08:26 12/11/18 08:26 Labs: Laboratory Results - last 24 hr 12/07/18 12/08/18 12/08/18 21:55 00:46 06:20 WBC RBC Hgb Hct MCV MCH MCHC RDW Plt Count MPV Neut % (Auto) Lymph % (Auto) [place] % (Auto) Eos % (Auto) Baso % (Auto) Neut # (Auto) Lymph # (Auto) [place] # (Auto) Eos # (Auto) Baso # (Auto) Neutrophils % (Manual) Band Neutrophils % Lymphocytes % (Manual) Monocytes % (Manual) Platelet Estimate ESR PT INR APTT Sodium Potassium Chloride Carbon Dioxide Anion Gap BUN Creatinine Est GFR ( Amer) Est GFR (Non-Af Amer) POC Glucose (mg/dL) 152 H 136 H Random Glucose Hemoglobin A1c Lactic Acid Calcium Total Creatine Kinase 53 L CK-MB (Mass) 1.06 Troponin I 0.0710 C-Reactive Protein Triglycerides Cholesterol LDL Cholesterol Direct HDL Cholesterol Influenza Typ A,B (EIA) 12/08/18 12/08/18 12/08/18 07:32 07:32 07:32 WBC 23.2 H D RBC 5.06 Hgb 13.0 D Hct 41.6 MCV 82.3 MCH 25.7 L MCHC 31.2 L RDW 17.1 H Plt Count 268 MPV 9.4 Neut % (Auto) 85.2 H Lymph % (Auto) 7.2 L [place] % (Auto) 7.0 Eos % (Auto) 0.5 Baso % (Auto) 0.1 Neut # (Auto) 19.8 H Lymph # (Auto) 1.7 [place]one # (Auto) 1.6 H Eos # (Auto) 0.1 Baso # (Auto) 0.0 Neutrophils % (Manual) 83 H Band Neutrophils % 6 H Lymphocytes % (Manual) 7 L Monocytes % (Manual) 4 Platelet Estimate Normal ESR PT 20.0 H INR 1.8 APTT 33 Sodium 135 Potassium 5.0 Chloride 99 Carbon Dioxide 29 Anion Gap 12 BUN 35 H Creatinine 1.9 H Est GFR ( Amer) 43 Est GFR (Non-Af Amer) 35 POC Glucose (mg/dL) Random Glucose 139 H Hemoglobin A1c Lactic Acid Calcium 8.7 Total Creatine Kinase 67 CK-MB (Mass) 1.03 Troponin I 0.0420 C-Reactive Protein Triglycerides 202 H Cholesterol 161 LDL Cholesterol Direct 92 HDL Cholesterol 34 Influenza Typ A,B (EIA) 12/08/18 12/08/18 12/08/18 10:05 11:53 16:15 WBC RBC Hgb Hct MCV MCH MCHC RDW Plt Count MPV Neut % (Auto) Lymph % (Auto) [place] % (Auto) Eos % (Auto) Baso % (Auto) Neut # (Auto) Lymph # (Auto) [place] # (Auto) Eos # (Auto) Baso # (Auto) Neutrophils % (Manual) Band Neutrophils % Lymphocytes % (Manual) Monocytes % (Manual) Platelet Estimate ESR PT INR APTT Sodium Potassium Chloride Carbon Dioxide Anion Gap BUN Creatinine Est GFR ( Amer) Est GFR (Non-Af Amer) POC Glucose (mg/dL) 104 123 H Random Glucose Hemoglobin A1c 6.4 Lactic Acid Calcium Total Creatine Kinase CK-MB (Mass) Troponin I C-Reactive Protein Triglycerides Cholesterol LDL Cholesterol Direct HDL Cholesterol Influenza Typ A,B (EIA) 12/08/18 12/08/18 12/08/18 17:20 17:20 17:20 WBC RBC Hgb Hct MCV MCH MCHC RDW Plt Count MPV Neut % (Auto) Lymph % (Auto) [place] % (Auto) Eos % (Auto) Baso % (Auto) Neut # (Auto) Lymph # (Auto) [place] # (Auto) Eos # (Auto) Baso # (Auto) Neutrophils % (Manual) Band Neutrophils % Lymphocytes % (Manual) Monocytes % (Manual) Platelet Estimate ESR 23 H PT INR APTT Sodium Potassium Chloride Carbon Dioxide Anion Gap BUN Creatinine Est GFR ( Amer) Est GFR (Non-Af Amer) POC Glucose (mg/dL) Random Glucose Hemoglobin A1c Lactic Acid 1.6 Calcium Total Creatine Kinase CK-MB (Mass) Troponin I C-Reactive Protein 270.70 H Triglycerides Cholesterol LDL Cholesterol Direct HDL Cholesterol Influenza Typ A,B (EIA) 12/08/18 17:52 WBC RBC Hgb Hct MCV MCH MCHC RDW Plt Count MPV Neut % (Auto) Lymph % (Auto) [place] % (Auto) Eos % (Auto) Baso % (Auto) Neut # (Auto) Lymph # (Auto) [place] # (Auto) Eos # (Auto) Baso # (Auto) Neutrophils % (Manual) Band Neutrophils % Lymphocytes % (Manual) Monocytes % (Manual) Platelet Estimate ESR PT INR APTT Sodium Potassium Chloride Carbon Dioxide Anion Gap BUN Creatinine Est GFR ( Amer) Est GFR (Non-Af Amer) POC Glucose (mg/dL) Random Glucose Hemoglobin A1c Lactic Acid Calcium Total Creatine Kinase CK-MB (Mass) Troponin I C-Reactive Protein Triglycerides Cholesterol LDL Cholesterol Direct HDL Cholesterol Influenza Typ A,B (EIA) Negative for flu a/b Assessment & Plan (1) COPD (chronic obstructive pulmonary disease) Status: Acute (2) Pneumonia Status: Acute (3) A-fib Status: Acute (4) Pleural effusion Status: Acute (5) CHF (congestive heart failure) Status: Acute - Assessment and Plan (Free Text) Assessment: cultures of sputum sent IV antibioitics fir CAP
[2018-12-08] MEDS ORDERED: Vancomycin 1 gm/NS 200 ml 1 GM/200 ML BAG IVPB STA (20:12)
[2018-12-09] MEDS: (Novolog) Insulin Aspart, Recombinant 100 u/ml 10 ml vial SC SCH ×4 (07:30→22:22)
[2018-12-09 07:50] LABS: BASO % 0.1 % (0.0-2.0); EOS # 0.1 K/uL (0.0-0.7); EOS % 0.9 % (0.0-4.0); HEMOGLOBIN 11.6 g/dL (12.0-18.0); LYMPH # 1.1 K/uL (1.0-4.3); LYMPH % 7.9 % (20.0-40.0); MEAN CELL VOLUME 82.5 fL (80.0-94.0); MEAN CORPUSCULAR HEMOGLOBIN 26.4 pg (27.0-31.0); MEAN CORPUSCULAR HGB CONC 31.9 g/dL (33.0-37.0); MEAN PLATELET VOLUME 9.4 fL (7.2-11.7); MONO % 7.4 % (0.0-10.0); NEUT # 11.8 K/uL (1.8-7.0); NEUT % 83.7 % (50.0-75.0); NRBC % 0.1 % (0.0-2.0); PLATELET COUNT 213 K/uL (130-400); RBC 4.42 Mil/uL (4.40-5.90); RED CELL DISTRIBUTION WIDTH 17.3 % (11.5-14.5); WHITE BLOOD COUNT 14.1 K/uL (4.8-10.8)
[2018-12-09 08:05] LABS: ALB/GLOB RATIO 1.3 (1.0-2.1); ALBUMIN 3.3 g/dL (3.5-5.0); CALCIUM 8.2 mg/dl (8.6-10.4)
--- NOTE | 2018-12-09 08:32 | CP.PCM.PN ---
Subjective - Date & Time of Evaluation Date of Evaluation: 12/09/18 Time of Evaluation: 08:03 - Subjective Subjective: Progress note for Dr. Morales Patient was seen and examined at bedside in no acute distress. Patient reports increased urgency since parks insertion in the ED two days ago, but denies hematuria, pain with urination, suprapubic pain, and incontinence. Patient otherwise denies chest pain, dyspnea, palpations, cough, nausea, vomiting, fev ers, headaches, abdominal pain, diarrhea, and constipation. Objective - Vital Signs/Intake and Output Vital Signs (last 24 hours): Temp Pulse Resp BP Pulse Ox 98.1 F 82 20 103/62 95 12/08/18 23:40 12/09/18 06:00 12/08/18 23:40 12/09/18 06:00 12/08/18 23:40 - Medications Medications: Current Medications Allopurinol (Zyloprim) 300 mg PO DAILY [facility] Last Admin: 12/08/18 10:13 Dose: 300 mg Carvedilol (Coreg) 6.25 mg PO BID [facility] Last Admin: 12/08/18 18:11 Dose: Not Given Colchicine (Colocrys) 0.6 mg PO DAILY [facility] Last Admin: 12/08/18 10:15 Dose: 0.6 mg Dextrose (Dextrose 50% Inj) 0 ml IV STAT PRN; Protocol PRN Reason: Hypoglycemia Protocol Dextrose (Glutose 15) 0 gm PO ONCE PRN; Protocol PRN Reason: Hypoglycemia Protocol Digoxin (Lanoxin) 0.25 mg IVP Q24H [facility] Last Admin: 12/08/18 18:14 Dose: 0.25 mg Diltiazem HCl (Cardizem) 30 mg PO Q8 [facility] Last Admin: 12/09/18 06:42 Dose: 30 mg Finasteride (Proscar) 5 mg PO DAILY [facility] Last Admin: 12/08/18 10:14 Dose: 5 mg Furosemide (Lasix) 20 mg IVP BID [facility] Last Admin: 12/08/18 18:11 Dose: Not Given Glucagon (Glucagen Diagnostic Kit) 0 mg IM STAT PRN; Protocol PRN Reason: Hypoglycemia Protocol Dextrose (Dextrose 5% In Water 1000 Ml) 1,000 mls @ 0 mls/hr IV .Q0M PRN; Protocol PRN Reason: Hypoglycemia Protocol Azithromycin 500 mg/ Sodium (Chloride) 250 mls @ 250 mls/hr IVPB DAILY [facility]; Protocol Last Admin: 12/08/18 18:16 Dose: 250 mls/hr Ceftriaxone Sodium 1 gm/ (Sodium Chloride) 100 mls @ 100 mls/hr IVPB Q12H [facility]; Protocol Last Admin: 12/09/18 05:58 Dose: 100 mls/hr Insulin Aspart (Novolog) 0 unit SC ACHS [facility]; Protocol Last Admin: 12/08/18 22:17 Dose: Not Given Lisinopril (Zestril) 20 mg PO DAILY [facility] Last Admin: 12/08/18 10:14 Dose: 20 mg Metformin HCl (Glucophage) 500 mg PO BID [facility] Last Admin: 12/08/18 18:11 Dose: Not Given Pantoprazole Sodium (Protonix Ec Tab) 40 mg PO DAILY [facility] Last Admin: 12/08/18 10:14 Dose: 40 mg Sitagliptin Phosphate (Januvia) 25 mg PO DAILY [facility] Tamsulosin HCl (Flomax) 0.4 mg PO DAILY [facility] Last Admin: 12/08/18 10:13 Dose: 0.4 mg - Labs Labs: 12/09/18 07:35 12/08/18 07:32 PT 20.0 SECONDS (9.7-12.2) H 12/08/18 07:32 INR 1.8 12/08/18 07:32 APTT 33 SECONDS (21-34) 12/08/18 07:32 Assessment and Plan - Assessment and Plan (Free Text) Plan: This is a 68 yo male, originally from [place], with past medical hx of CHF, HTN, BPH, DM, a fib, presenting with Community acquired Pneumonia - CXR: small to moderate left pneumo? small b/l pleural effusion; abnormal opacity at right base; r/o pneumonia; smooth pleural based opacity mid lateral left lung common, nonspecific. - Chest CT: (chest CT was ordered due to cxr findings- no pneumothorax per CT) bilateral calcified pleural plaquing, left greater than right; possibly related to previous sclerotherapy or asbestos exposure; no evidence of pneumothorax; multifocal pneumonia particularly in the right lower lobe, right middle lobe, and posterior lateral left lower lobe. - ID consulted, Dr. Landis; help appreciated - Leukocytosis (14.1), no bandemia; Lactate within normal range - Flu negative - Blood cx: f/u - Urine cx: f/u - Legionella, mycoplasma: f/u - Procal: f/u - Medications: * Azithromycin 500mg IV daily (active on 12/08/18) * Rocephin 1gm IV Q12h (active on 12/08/18) RONALD - held lisinopril, lasix, metformin, allopurinol, and colchicine - NS@80mls/hr - Nephrology consulted, Dr. Samuel; help appreciated - Renal US: f/u Pulmonary edema - Furosemide 20 mg IV BID- held due to elevated cr Congestive Heart failure - Echo: f/u - Cardiology consult. Dr. Sevilla. recs appreciated. - Medications: * Continue home medications: coreg 6.25 BID, lisinopril 20 mg daily (held due to ronald) * Digoxin 0.25mg IV daily * Furosemide 20mg IV BID- held due to elevated cr Afib - Continue home medication: Warfarin 5mg daily, Coreg 6.25 BID - Digoxin 0.25mg IV daily - Digoxin level - Cardiology consult. Dr. Sevilla. recs appreciated. - Continue to monitor, on tele Hx of DM - Accuchecks; Hypoglycemia protocol - Medications: * Metformin 500 mg bid (held due to ronald) * Januvia 25mg PO daily * ISS Hx of BPH - Continue home medications: finasteride 5 mg daily, flomax .4 mg daily Prophylaxis - DVT: Scds, continue home medication Warfarin 5mg PO - GI: Protonix 40 daily Case discussed with and patient seen with Dr. Morales. Kamille Blackwood, PGY2
[2018-12-09 09:49] LABS: ANISOCYTOSIS SLIGHT; EOSINOPHIL 1 % (0-4); LYMPHOCYTE 7 % (20-40); MONOCYTE 5 % (0-10); NEUTROPHIL 87 % (50-75); PLATELET ESTIMATE NORMAL (NORMAL); TOTAL CELLS COUNTED 100
[2018-12-09 09:50] LABS: HYPOCHROMIC SLIGHT; POLYCHROMIC SLIGHT
[2018-12-09] MEDS: Azithromycin 500 MG in Sodium Chloride 0.9% 250 ML IVPB SCH (10:21)
[2018-12-09] MEDS: Pantoprazole 40 mg EC Tab PO SCH (10:22)
--- NOTE | 2018-12-09 13:15 | US ---
Date of service: 12/09/2018 PROCEDURE: Ultrasound of the Kidneys HISTORY: RONALD COMPARISON: None available. TECHNIQUE: Sonogram of the kidneys. FINDINGS: RIGHT KIDNEY: Measures: 13.2 cm. Normal in size, contour and echogenicity. No stone, solid mass lesion or hydronephrosis visualized. There are simple cysts in the kidney, the largest in the interpolar region measures 4.6 x 2.4 x 2.7 cm. LEFT KIDNEY: Measures: 13.0 cm. Normal in size, contour and echogenicity. No stone, solid mass lesion or hydronephrosis visualized. There are simple cysts in the kidney, the the largest in the lower pole measures 5.7 x 3.5 x 5.5 cm. OTHER FINDINGS: None. IMPRESSION: No nephrolithiasis or hydronephrosis. Simple cysts in both kidneys, the largest in the left lower pole measures 5.7 x 3.5 x 5.5 cm.
[2018-12-09] MEDS: Sodium Chloride 0.9% 1,000 ML IV SCH (15:11)
--- NOTE | 2018-12-09 16:17 | CP.PCM.CON ---
History of Present Illness - History of Present Illness History of Present Illness: Nephrology Consultation Note: Assessment: Stable Acute Kidney Injury (N17.9) likely due to pneumonia, low BP, further compounded by diuretics Anemia hyponatremia DM, HTN with CKD 2 Obesity A fib BPH renal cyst Plan No acute need for renal replacement therapy at this time. Hypertension control with meds as ordered. Maintain hemodynamics stable. Avoid hypotension. Patient not on ACEI/ARB due to recent RONALD. hold bp meds Monitor Input/Output, daily weights and renal function with basic metabolic panel continue with IVF as NS hold lasix continue with proscar and flomax Check urine analysis, spot protein/creatinine, albumin/creatinine ratio,bladder sonogram with PVR, urine Na and Osmol check Hep B/C/HIV serology Vit d, PTH level Dose meds/antibiotics for reduced GFR. Avoid fleets enema/magnesium based laxatives. Avoid nephrotoxins/NSAIDs/ iodinated contrast (unless needed emergently) Glycemic control Further work up/management as per primary team Thanks for allowing me to participate in care of your patient. Will follow patient with you. Please call if any Qs. had d/w team Dr Tony Kim Office: [phone] Chief Complaint; SOB Reason for consult: Acute Kidney Injury HPI: Pt is a 68 M with hx of diabetes Mellitus ( years), hypertension (years) Obesity A fib BPH COPD presented with complaints of SOB and cough, admitted for pnuemonia. also was treated for possible CHF Denies OTC/herbal meds or NSAIDs No recent iodinated contrast exposure. Noted obvious episodes of low BP (94/58). pt not aware about kidney diseas in past. baseline cr 1.2-1.3 in 2015 ex smoker ROS: limited from pt Cardiovascular: No chest pain. Pulmonary: improved shortness of breath Gastrointestinal: denies abdominal pain No nausea. No vomiting. Genitourinary: mild pain while urinating. Denies blood in urine. All other negative except as mentioned in HPI Physical Examination: General Appearance: Comfortable, in no acute respiratory distress, co-operative . obese Vitals reviewed and noted as below Head; Atraumatic, normocephalic ENT: no ulcers no thrush. Tongue is midline/dry. Oropharynx: no rash or ulcers. EYES: Pupils are equal, round and reactive to light accommodation. Eye muscles and extraocular movement intact. Sclera is anicteric. Neck; supple no lymphadenopathy, no thyromegaly or bruit Lungs: Normal respiratory rate/effort. Breath sounds bilateral equal and clear Heart: Normal rate. s1s2 normal. No rub or gallop. Extremities: no edema. has varicose veins Neurological: Patient is alert, awake and oriented to person, place and time. No focal deficit. Strength bilateral appropriate and equal Skin: Warm and dry. Normal turgor. No rash. Palpitation: Normal elasticity for age Abdomen: Abdomen is soft. Bowel sounds +. There is no abdominal tenderness, no guarding/rigidity no organomegaly Psych: limited insight and normal affect/mood MSK: no joint tenderness or swelling. Digits and nails normal, no deformity. : kidney or bladder not palpable Labs/imaging reviewed. Past medical history, past surgical history, family history, social history, allergy reviewed and noted as below Family hx: no hx of CKD. Rest non-contributory renal sono: b/l cyst Ct chest b/l multifical pna left adrenal nodule Past Patient History - Past Medical History & Family History Past Medical History?: Yes - Past Social History Smoking Status: Former Smoker - CARDIAC Hx Atrial Fibrillation: Yes Hx Congestive Heart Failure: Yes Hx Hypertension: Yes Hx Pacemaker: No Hx Peripheral Edema: Yes - PULMONARY Hx Respiratory Disorders: Yes Hx Asthma: Yes - NEUROLOGICAL Hx Neurological Disorder: No Hx Paralysis: No - HEENT Hx HEENT Problems: No - RENAL Hx Chronic Kidney Disease: No - ENDOCRINE/METABOLIC Hx Diabetes Mellitus Type 2: Yes - HEMATOLOGICAL/ONCOLOGICAL Hx Blood Transfusions: No Hx Blood Transfusion Reaction: No - INTEGUMENTARY Hx Dermatological Problems: No - MUSCULOSKELETAL/RHEUMATOLOGICAL Hx Musculoskeletal Disorders: Yes Hx Falls: No Hx Gout: Yes - GASTROINTESTINAL Hx Nausea: Yes - GENITOURINARY/GYNECOLOGICAL Hx Prostate Problems: Yes - PSYCHIATRIC Hx Substance Use: No - SURGICAL HISTORY Hx Surgeries: Yes Hx Orthopedic Surgery: Yes (LEFT LEG) - ANESTHESIA Hx Anesthesia: Yes Hx Anesthesia Reactions: No Hx Malignant Hyperthermia: No Meds Allergies/Adverse Reactions: Allergies Allergy/AdvReac Type Severity Reaction Status Date / Time No Known Allergies Allergy Verified 12/07/18 17:56 - Medications Medications: Current Medications Allopurinol (Zyloprim) 300 mg PO DAILY [facility] Last Admin: 12/09/18 10:23 Dose: 300 mg Carvedilol (Coreg) 6.25 mg PO BID [facility] Last Admin: 12/09/18 10:28 Dose: 6.25 mg Colchicine (Colocrys) 0.6 mg PO DAILY [facility] Last Admin: 12/09/18 10:23 Dose: 0.6 mg Dextrose (Dextrose 50% Inj) 0 ml IV STAT PRN; Protocol PRN Reason: Hypoglycemia Protocol Dextrose (Glutose 15) 0 gm PO ONCE PRN; Protocol PRN Reason: Hypoglycemia Protocol Digoxin (Lanoxin) 0.25 mg IVP Q24H [facility] Last Admin: 12/08/18 18:14 Dose: 0.25 mg Diltiazem HCl (Cardizem) 30 mg PO Q8 [facility] Last Admin: 12/09/18 15:07 Dose: 30 mg Finasteride (Proscar) 5 mg PO DAILY [facility] Last Admin: 12/09/18 10:23 Dose: 5 mg Furosemide (Lasix) 20 mg IVP BID [facility] Last Admin: 12/09/18 10:33 Dose: Not Given Glucagon (Glucagen Diagnostic Kit) 0 mg IM STAT PRN; Protocol PRN Reason: Hypoglycemia Protocol Dextrose (Dextrose 5% In Water 1000 Ml) 1,000 mls @ 0 mls/hr IV .Q0M PRN; Protocol PRN Reason: Hypoglycemia Protocol Azithromycin 500 mg/ Sodium (Chloride) 250 mls @ 250 mls/hr IVPB DAILY [facility]; Protocol Last Admin: 12/09/18 10:21 Dose: 250 mls/hr Ceftriaxone Sodium 1 gm/ (Sodium Chloride) 100 mls @ 100 mls/hr IVPB Q12H [facility]; Protocol Last Admin: 12/09/18 05:58 Dose: 100 mls/hr Sodium Chloride (Sodium Chloride 0.9%) 1,000 mls @ 80 mls/hr IV .[id number] [facility] Last Admin: 12/09/18 15:11 Dose: 80 mls/hr Insulin Aspart (Novolog) 0 unit SC ACHS [facility]; Protocol Last Admin: 12/09/18 12:16 Dose: Not Given Lisinopril (Zestril) 20 mg PO DAILY [facility] Last Admin: 12/09/18 10:34 Dose: Not Given Metformin HCl (Glucophage) 500 mg PO BID [facility] Last Admin: 12/09/18 10:28 Dose: 500 mg Pantoprazole Sodium (Protonix Ec Tab) 40 mg PO DAILY [facility] Last Admin: 12/09/18 10:22 Dose: 40 mg Sitagliptin Phosphate (Januvia) 25 mg PO DAILY [facility] Last Admin: 12/09/18 10:29 Dose: 25 mg Tamsulosin HCl (Flomax) 0.4 mg PO DAILY [facility] Last Admin: 12/09/18 10:23 Dose: 0.4 mg Warfarin Sodium (Coumadin) 5 mg PO 1800 [facility] Stop: 12/09/18 18:01 Results - Vital Signs Recent Vital Signs: Last Vital Signs Temp 98.1 F 12/09/18 09:25 Pulse 68 12/09/18 10:21 Resp 20 12/09/18 09:25 BP 94/58 L 12/09/18 10:33 Pulse Ox 89 L 12/09/18 10:36 - Labs Result Diagrams: 12/09/18 07:35 12/09/18 07:35 Labs: Laboratory Results - last 24 hr 12/08/18 12/08/18 12/08/18 16:15 17:20 17:20 WBC RBC Hgb Hct MCV MCH MCHC RDW Plt Count MPV Neut % (Auto) Lymph % (Auto) [place] % (Auto) Eos % (Auto) Baso % (Auto) Neut # (Auto) Lymph # (Auto) [place] # (Auto) Eos # (Auto) Baso # (Auto) Neutrophils % (Manual) Lymphocytes % (Manual) Monocytes % (Manual) Eosinophils % (Manual) Platelet Estimate Polychromasia Hypochromasia (manual) Anisocytosis (manual) ESR 23 H Sodium Potassium Chloride Carbon Dioxide Anion Gap BUN Creatinine Est GFR ( Amer) Est GFR (Non-Af Amer) POC Glucose (mg/dL) 123 H Random Glucose Lactic Acid 1.6 Calcium Phosphorus Magnesium Total Bilirubin AST ALT Alkaline Phosphatase C-Reactive Protein Total Protein Albumin Globulin Albumin/Globulin Ratio Procalcitonin Influenza Typ A,B (EIA) 12/08/18 12/08/18 12/08/18 17:20 17:52 21:40 WBC RBC Hgb Hct MCV MCH MCHC RDW Plt Count MPV Neut % (Auto) Lymph % (Auto) [place] % (Auto) Eos % (Auto) Baso % (Auto) Neut # (Auto) Lymph # (Auto) [place] # (Auto) Eos # (Auto) Baso # (Auto) Neutrophils % (Manual) Lymphocytes % (Manual) Monocytes % (Manual) Eosinophils % (Manual) Platelet Estimate Polychromasia Hypochromasia (manual) Anisocytosis (manual) ESR Sodium Potassium Chloride Carbon Dioxide Anion Gap BUN Creatinine Est GFR ( Amer) Est GFR (Non-Af Amer) POC Glucose (mg/dL) 130 H Random Glucose Lactic Acid Calcium Phosphorus Magnesium Total Bilirubin AST ALT Alkaline Phosphatase C-Reactive Protein 270.70 H Total Protein Albumin Globulin Albumin/Globulin Ratio Procalcitonin Influenza Typ A,B (EIA) Negative for flu a/b 12/09/18 12/09/18 12/09/18 00:48 07:35 07:35 WBC 14.1 H RBC 4.42 Hgb 11.6 L Hct 36.5 MCV 82.5 MCH 26.4 L MCHC 31.9 L RDW 17.3 H Plt Count 213 MPV 9.4 Neut % (Auto) 83.7 H Lymph % (Auto) 7.9 L [place] % (Auto) 7.4 Eos % (Auto) 0.9 Baso % (Auto) 0.1 Neut # (Auto) 11.8 H Lymph # (Auto) 1.1 [place] # (Auto) 1.0 H Eos # (Auto) 0.1 Baso # (Auto) 0.0 Neutrophils % (Manual) 87 H Lymphocytes % (Manual) 7 L Monocytes % (Manual) 5 Eosinophils % (Manual) 1 Platelet Estimate Normal Polychromasia Slight Hypochromasia (manual) Slight Anisocytosis (manual) Slight ESR Sodium Potassium Chloride Carbon Dioxide Anion Gap BUN Creatinine Est GFR ( Amer) Est GFR (Non-Af Amer) POC Glucose (mg/dL) Random Glucose Lactic Acid 1.1 Calcium Phosphorus Magnesium Total Bilirubin AST ALT Alkaline Phosphatase C-Reactive Protein Total Protein Albumin Globulin Albumin/Globulin Ratio Procalcitonin 44.62 H Influenza Typ A,B (EIA) 12/09/18 07:35 WBC RBC Hgb Hct MCV MCH MCHC RDW Plt Count MPV Neut % (Auto) Lymph % (Auto) [place] % (Auto) Eos % (Auto) Baso % (Auto) Neut # (Auto) Lymph # (Auto) [place] # (Auto) Eos # (Auto) Baso # (Auto) Neutrophils % (Manual) Lymphocytes % (Manual) Monocytes % (Manual) Eosinophils % (Manual) Platelet Estimate Polychromasia Hypochromasia (manual) Anisocytosis (manual) ESR Sodium 132 Potassium 4.5 Chloride 98 Carbon Dioxide 26 Anion Gap 12 BUN 47 H Creatinine 2.3 H Est GFR ( Amer) 34 Est GFR (Non-Af Amer) 28 POC Glucose (mg/dL) Random Glucose 118 H Lactic Acid Calcium 8.2 L Phosphorus 3.2 Magnesium 1.9 Total Bilirubin 0.6 AST 19 ALT 22 Alkaline Phosphatase 67 C-Reactive Protein Total Protein 5.8 L Albumin 3.3 L D Globulin 2.5 Albumin/Globulin Ratio 1.3 Procalcitonin Influenza Typ A,B (EIA)
--- NOTE | 2018-12-09 16:34 | CP.PCM.PN ---
Subjective - Date & Time of Evaluation Date of Evaluation: 12/09/18 Time of Evaluation: 16:32 - Subjective Subjective: patient feels well no chest pain Objective - Vital Signs/Intake and Output Vital Signs (last 24 hours): Temp Pulse Resp BP Pulse Ox 98.2 F 92 H 20 115/68 98 12/09/18 16:00 12/09/18 16:00 12/09/18 16:00 12/09/18 16:00 12/09/18 16:00 - Medications Medications: Current Medications Allopurinol (Zyloprim) 300 mg PO DAILY [facility] Last Admin: 12/09/18 10:23 Dose: 300 mg Carvedilol (Coreg) 6.25 mg PO BID [facility] Last Admin: 12/09/18 10:28 Dose: 6.25 mg Colchicine (Colocrys) 0.6 mg PO DAILY [facility] Last Admin: 12/09/18 10:23 Dose: 0.6 mg Dextrose (Dextrose 50% Inj) 0 ml IV STAT PRN; Protocol PRN Reason: Hypoglycemia Protocol Dextrose (Glutose 15) 0 gm PO ONCE PRN; Protocol PRN Reason: Hypoglycemia Protocol Digoxin (Lanoxin) 0.25 mg IVP Q24H [facility] Last Admin: 12/08/18 18:14 Dose: 0.25 mg Diltiazem HCl (Cardizem) 30 mg PO Q8 [facility] Last Admin: 12/09/18 15:07 Dose: 30 mg Finasteride (Proscar) 5 mg PO DAILY [facility] Last Admin: 12/09/18 10:23 Dose: 5 mg Furosemide (Lasix) 20 mg IVP BID [facility] Last Admin: 12/09/18 10:33 Dose: Not Given Glucagon (Glucagen Diagnostic Kit) 0 mg IM STAT PRN; Protocol PRN Reason: Hypoglycemia Protocol Dextrose (Dextrose 5% In Water 1000 Ml) 1,000 mls @ 0 mls/hr IV .Q0M PRN; Protocol PRN Reason: Hypoglycemia Protocol Azithromycin 500 mg/ Sodium (Chloride) 250 mls @ 250 mls/hr IVPB DAILY [facility]; Protocol Last Admin: 12/09/18 10:21 Dose: 250 mls/hr Ceftriaxone Sodium 1 gm/ (Sodium Chloride) 100 mls @ 100 mls/hr IVPB Q12H [facility]; Protocol Last Admin: 12/09/18 05:58 Dose: 100 mls/hr Sodium Chloride (Sodium Chloride 0.9%) 1,000 mls @ 80 mls/hr IV .[id number] [facility] Last Admin: 12/09/18 15:11 Dose: 80 mls/hr Insulin Aspart (Novolog) 0 unit SC ACHS [facility]; Protocol Last Admin: 12/09/18 12:16 Dose: Not Given Lisinopril (Zestril) 20 mg PO DAILY [facility] Last Admin: 12/09/18 10:34 Dose: Not Given Metformin HCl (Glucophage) 500 mg PO BID [facility] Last Admin: 12/09/18 10:28 Dose: 500 mg Pantoprazole Sodium (Protonix Ec Tab) 40 mg PO DAILY [facility] Last Admin: 12/09/18 10:22 Dose: 40 mg Sitagliptin Phosphate (Januvia) 25 mg PO DAILY [facility] Last Admin: 12/09/18 10:29 Dose: 25 mg Tamsulosin HCl (Flomax) 0.4 mg PO DAILY [facility] Last Admin: 12/09/18 10:23 Dose: 0.4 mg Warfarin Sodium (Coumadin) 5 mg PO 1800 [facility] Stop: 12/09/18 18:01 - Labs Labs: 12/09/18 07:35 12/09/18 07:35 PT 20.0 SECONDS (9.7-12.2) H 12/08/18 07:32 INR 1.8 12/08/18 07:32 APTT 33 SECONDS (21-34) 12/08/18 07:32 - Constitutional Appears: Non-toxic - Head Exam Head Exam: NORMAL INSPECTION - Eye Exam Eye Exam: Normal appearance - ENT Exam ENT Exam: Mucous Membranes Moist - Neck Exam Neck Exam: Full ROM - Respiratory Exam Respiratory Exam: NORMAL BREATHING PATTERN - Cardiovascular Exam Cardiovascular Exam: REGULAR RHYTHM - GI/Abdominal Exam GI & Abdominal Exam: Normal Bowel Sounds - Rectal Exam Rectal Exam: Deferred - Extremities Exam Extremities Exam: absent: Pedal Edema - Back Exam Back Exam: NORMAL INSPECTION - Neurological Exam Neurological Exam: Alert - Psychiatric Exam Psychiatric exam: Normal Affect - Skin Skin Exam: Normal Color Assessment and Plan (1) A-fib Assessment & Plan: continue rate control. anticaogulation. no valvular dsyfunction. can change to NOAC if necessary Status: Acute (2) Hypertension Assessment & Plan: blood pressure control Status: Acute
[2018-12-09 17:44] LABS: INR 1.9; PROTHROMBIN TIME 21.3 SECONDS (9.7-12.2)
[2018-12-09] MEDS: Digoxin 500 mcg/2ml (0.5 mg/2ml) Inj IVP SCH (18:49)
[2018-12-09 19:03] LABS: HEPATITIS B SURFACE AG Negative (NEGATIVE)
[2018-12-09 19:08] LABS: HEPATITIS B CORE AB NEGATIVE (NEGATIVE)
[2018-12-09 19:20] LABS: HEPATITIS C ANTIBODY NEGATIVE (NEGATIVE)
--- NOTE | 2018-12-09 19:24 | CP.PCM.PN ---
Subjective - Date & Time of Evaluation Date of Evaluation: 12/09/18 Time of Evaluation: 09:00 - Subjective Subjective: T max lower still with cough and SOB but improved Objective - Vital Signs/Intake and Output Vital Signs (last 24 hours): Temp Pulse Resp BP Pulse Ox 98.2 F 92 H 20 115/68 98 12/09/18 16:00 12/09/18 16:00 12/09/18 16:00 12/09/18 16:00 12/09/18 16:00 - Medications Medications: Current Medications Allopurinol (Zyloprim) 300 mg PO DAILY [facility] Last Admin: 12/09/18 10:23 Dose: 300 mg Carvedilol (Coreg) 6.25 mg PO BID [facility] Last Admin: 12/09/18 18:59 Dose: Not Given Colchicine (Colocrys) 0.6 mg PO DAILY [facility] Last Admin: 12/09/18 10:23 Dose: 0.6 mg Dextrose (Dextrose 50% Inj) 0 ml IV STAT PRN; Protocol PRN Reason: Hypoglycemia Protocol Dextrose (Glutose 15) 0 gm PO ONCE PRN; Protocol PRN Reason: Hypoglycemia Protocol Digoxin (Lanoxin) 0.25 mg IVP Q24H [facility] Last Admin: 12/09/18 18:49 Dose: Not Given Diltiazem HCl (Cardizem) 30 mg PO Q8 [facility] Last Admin: 12/09/18 15:07 Dose: 30 mg Finasteride (Proscar) 5 mg PO DAILY [facility] Last Admin: 12/09/18 10:23 Dose: 5 mg Furosemide (Lasix) 20 mg IVP BID [facility] Last Admin: 12/09/18 10:33 Dose: Not Given Glucagon (Glucagen Diagnostic Kit) 0 mg IM STAT PRN; Protocol PRN Reason: Hypoglycemia Protocol Dextrose (Dextrose 5% In Water 1000 Ml) 1,000 mls @ 0 mls/hr IV .Q0M PRN; Protocol PRN Reason: Hypoglycemia Protocol Azithromycin 500 mg/ Sodium (Chloride) 250 mls @ 250 mls/hr IVPB DAILY [facility]; Protocol Last Admin: 12/09/18 10:21 Dose: 250 mls/hr Ceftriaxone Sodium 1 gm/ (Sodium Chloride) 100 mls @ 100 mls/hr IVPB Q12H [facility]; Protocol Last Admin: 12/09/18 05:58 Dose: 100 mls/hr Sodium Chloride (Sodium Chloride 0.9%) 1,000 mls @ 80 mls/hr IV .[id number] [facility] Last Admin: 12/09/18 15:11 Dose: 80 mls/hr Insulin Aspart (Novolog) 0 unit SC ACHS [facility]; Protocol Last Admin: 12/09/18 18:00 Dose: Not Given Lisinopril (Zestril) 20 mg PO DAILY [facility] Last Admin: 12/09/18 10:34 Dose: Not Given Metformin HCl (Glucophage) 500 mg PO BID [facility] Last Admin: 12/09/18 10:28 Dose: 500 mg Pantoprazole Sodium (Protonix Ec Tab) 40 mg PO DAILY [facility] Last Admin: 12/09/18 10:22 Dose: 40 mg Sitagliptin Phosphate (Januvia) 25 mg PO DAILY [facility] Last Admin: 12/09/18 10:29 Dose: 25 mg Tamsulosin HCl (Flomax) 0.4 mg PO DAILY [facility] Last Admin: 12/09/18 10:23 Dose: 0.4 mg - Labs Labs: 12/09/18 07:35 12/09/18 07:35 PT 21.3 SECONDS (9.7-12.2) H 12/09/18 17:30 INR 1.9 12/09/18 17:30 APTT 33 SECONDS (21-34) 12/08/18 07:32 - Constitutional Appears: Non-toxic, No Acute Distress, Chronically Ill - Head Exam Head Exam: NORMOCEPHALIC - Eye Exam Eye Exam: absent: Scleral icterus - ENT Exam ENT Exam: Mucous Membranes Dry - Neck Exam Neck Exam: absent: Lymphadenopathy - Respiratory Exam Respiratory Exam: Decreased Breath Sounds - Cardiovascular Exam Cardiovascular Exam: REGULAR RHYTHM - GI/Abdominal Exam GI & Abdominal Exam: Distended, Soft - Rectal Exam Rectal Exam: Deferred - Exam Exam: NORMAL INSPECTION - Extremities Exam Extremities Exam: absent: Pedal Edema - Back Exam Back Exam: absent: CVA tenderness (L), CVA tenderness (R) - Neurological Exam Neurological Exam: Alert, Awake, CN II-XII Intact, Oriented x3 - Psychiatric Exam Psychiatric exam: Normal Mood - Skin Skin Exam: Dry Assessment and Plan - Assessment and Plan (Free Text) Assessment: cont iv antibiotics for sepsis await cultures follow upo CXR
[2018-12-09] MEDS ORDERED: Docusate-Senna 50 mg-8.6 mg Tab PO ONE (19:30)
[2018-12-09 21:24] LABS: SQUAMOUS EPITHIAL < 1 /hpf (0-5); URINE BACTERIA OCC (<OCC); URINE BILIRUBIN NEGATIVE (NEGATIVE); URINE BLOOD NEGATIVE (NEGATIVE); URINE CLARITY Clear (Clear); URINE COLOR Yellow (YELLOW); URINE GLUCOSE (UA) NORMAL (Normal); URINE LEUKOCYTE ESTERASE NEG Leu/uL (Negative); URINE PROTEIN NEGATIVE (NEGATIVE); URINE UROBILINOGEN NORMAL mg/dL (0.2-1.0)
[2018-12-09 21:27] LABS: OSMOLALITY,URINE 471 mosm/kg (300-1000)
[2018-12-10] MEDS: Sodium Chloride 0.9% 1,000 ML IV SCH
[2018-12-10] MEDS: (Novolog) Insulin Aspart, Recombinant 100 u/ml 10 ml vial SC SCH ×4 (07:59→22:18)
--- NOTE | 2018-12-10 08:27 | CARD ---
APPROVED REPORT Date of service: 12/08/2018 EXAM: Two-dimensional and M-mode echocardiogram with Doppler and color Doppler. INDICATION Dyspnea Atrial Fibrillation COPD RISK FACTORS Hypertension 2D DIMENSIONS IVSd1.1 (0.7-1.1cm)LVDd4.8 (3.9-5.9cm) PWd1.1 (0.7-1.1cm)LA [id number] (18-58mL) LVDs3.6 (2.5-4.0cm)FS (%) 24.9 % LVEF (%)60.0 (>50%)LVEF (Sewell's)67.26 % M-Mode DIMENSIONS Left Atrium (MM)4.62 (2.5-4.0cm)IVSd1.00 (0.7-1.1cm) Aortic Root3.38 (2.2-3.7cm)LVDd5.35 (4.0-5.6cm) Aortic Cusp Exc.2.06 (1.5-2.0cm)PWd0.92 (0.7-1.1cm) FS (%) 42 %LVDs3.09 (2.0-3.8cm) LVEF (%)60 (>50%) Mitral Valve MV E Srvszkma91.6cm/sE/A ratio0.0 TDI Lateral E' Peak V7.96cm/sMedial E' Peak V11.32cm/sE/Lateral E'11.3 E/Medial E'7.9 Tricuspid Valve TR Peak [id number]/sTR Peak [id number] LEFT VENTRICLE The left ventricle is normal size. There is mild concentric left ventricular hypertrophy. Left ventricle systolic function is normal. The Ejection Fraction is 60-65%. There is normal LV segmental wall motion. The left ventricular diastolic function is normal. RIGHT VENTRICLE The right ventricle is normal size. There is normal right ventricular wall thickness. The right ventricular systolic function is normal. ATRIA The left atrium is mildly dilated. The right atrium size is normal. The thickening of interatrial septum suggests lipomatous hypertrophy. The discontinuity of the interatrial septum is suggestive of an atrial septal defect. Suggest IRLANDA. AORTIC VALVE The aortic valve is normal in structure. No aortic regurgitation is present. There is no aortic valvular stenosis. There is no aortic valvular vegetation. MITRAL VALVE The mitral valve is thickened but opens well. There is no evidence of mitral valve prolapse. There is no mitral valve stenosis. There is no mitral valve regurgitation noted. TRICUSPID VALVE The tricuspid valve is normal in structure. There is mild tricuspid regurgitation. Right ventricular systolic pressure is estimated at 30-40 mmHg. There is mild pulmonary hypertension. PULMONIC VALVE The pulmonic valve is not well visualized. There is no pulmonic valvular regurgitation. GREAT VESSELS The aortic root is mildly enlarged. PERICARDIAL EFFUSION There is no significant pericardial effusion. <Conclusion> Left ventricle systolic function is normal. The Ejection Fraction is 60-65%. Hypertensive heart disease. The thickening of interatrial septum suggests lipomatous hypertrophy. The discontinuity of the interatrial septum is suggestive of an atrial septal defect. Suggest IRLANDA. No aortic regurgitation is present. There is no mitral valve regurgitation noted. There is mild tricuspid regurgitation. There is mild pulmonary hypertension. There is no pulmonic valvular regurgitation.
[2018-12-10 09:01] LABS: CALCIUM 8.3 mg/dl (8.6-10.4)
[2018-12-10] MEDS: Azithromycin 500 MG in Sodium Chloride 0.9% 250 ML IVPB SCH (10:34)
[2018-12-10] MEDS: Pantoprazole 40 mg EC Tab PO SCH (10:34)
--- NOTE | 2018-12-10 13:29 | CP.PCM.PN ---
Subjective - Date & Time of Evaluation Date of Evaluation: 12/10/18 Time of Evaluation: 13:27 - Subjective Subjective: Nephrology Consultation Note: Assessment: Stable Acute Kidney Injury (N17.9) likely due to pneumonia, low BP, further compounded by diuretics Anemia hyponatremia DM, HTN with CKD 2 Obesity A fib BPH renal cyst Plan No acute need for renal replacement therapy at this time. Hypertension control with meds as ordered. Maintain hemodynamics stable. Avoid hypotension. Patient not on ACEI/ARB due to recent RONALD. hold bp meds Monitor Input/Output, daily weights and renal function with basic metabolic panel hold lasix due to RONALD continue with proscar and flomax renal function better with IVF. d/w primary team and due to their concerns for CHF hx, further ivf will be also on hold. recent LVEF normal. pro-BNP 377 Check urine analysis, spot protein/creatinine, albumin/creatinine ratio,bladder sonogram with PVR, urine Na and Osmol check Hep B/C/HIV serology Vit d, PTH level adrenal nodule work up as outpt Dose meds/antibiotics for reduced GFR. Avoid fleets enema/magnesium based laxatives. Avoid nephrotoxins/NSAIDs/ iodinated contrast (unless needed emergently) Glycemic control Further work up/management as per primary team Thanks for allowing me to participate in care of your patient. Will follow patient with you. Please call if any Qs. had d/w team Dr Tony Kim Office: [phone] Chief Complaint; SOB Reason for consult: Acute Kidney Injury HPI: Pt is a 68 M with hx of diabetes Mellitus ( years), hypertension (years) Obesity A fib BPH COPD presented with complaints of SOB and cough, admitted for pnuemonia. also was treated for possible CHF Denies OTC/herbal meds or NSAIDs No recent iodinated contrast exposure. Noted obvious episodes of low BP (94/58). pt not aware about kidney diseas in past. baseline cr 1.2-1.3 in 2015 ex smoker ROS: limited from pt Cardiovascular: No chest pain. Pulmonary: improved shortness of breath Gastrointestinal: denies abdominal pain No nausea. No vomiting. Genitourinary: mild pain while urinating. Denies blood in urine. All other negative except as mentioned in HPI Physical Examination: General Appearance: Comfortable, in no acute respiratory distress, co-operative . obese Vitals reviewed and noted as below Head; Atraumatic, normocephalic ENT: no ulcers no thrush. Tongue is midline/dry. Oropharynx: no rash or ulcers. EYES: Pupils are equal, round and reactive to light accommodation. Eye muscles and extraocular movement intact. Sclera is anicteric. Neck; supple no lymphadenopathy, no thyromegaly or bruit Lungs: Normal respiratory rate/effort. Breath sounds bilateral equal and clear Heart: Normal rate. s1s2 normal. No rub or gallop. Extremities: no edema. has varicose veins Neurological: Patient is alert, awake and oriented to person, place and time. No focal deficit. Strength bilateral appropriate and equal Skin: Warm and dry. Normal turgor. No rash. Palpitation: Normal elasticity for age Abdomen: Abdomen is soft. Bowel sounds +. There is no abdominal tenderness, no guarding/rigidity no organomegaly Psych: limited insight and normal affect/mood MSK: no joint tenderness or swelling. Digits and nails normal, no deformity. : kidney or bladder not palpable Labs/imaging reviewed. Past medical history, past surgical history, family history, social history, allergy reviewed and noted as below Family hx: no hx of CKD. Rest non-contributory renal sono: b/l cyst Ct chest b/l multifical pna left adrenal nodule Objective - Vital Signs/Intake and Output Vital Signs (last 24 hours): Temp Pulse Resp BP Pulse Ox 97.2 F L 68 20 118/58 L 100 12/10/18 07:30 12/10/18 09:03 12/10/18 07:30 12/10/18 07:30 12/10/18 07:30 Intake and Output: 12/10/18 12/10/18 06:59 18:59 Intake Total 1640 Output Total 500 Balance 1140 - Medications Medications: Current Medications Allopurinol (Zyloprim) 300 mg PO DAILY [facility] Last Admin: 12/09/18 10:23 Dose: 300 mg Carvedilol (Coreg) 6.25 mg PO BID [facility] Last Admin: 12/10/18 10:33 Dose: 6.25 mg Colchicine (Colocrys) 0.6 mg PO DAILY [facility] Last Admin: 12/09/18 10:23 Dose: 0.6 mg Dextrose (Dextrose 50% Inj) 0 ml IV STAT PRN; Protocol PRN Reason: Hypoglycemia Protocol Dextrose (Glutose 15) 0 gm PO ONCE PRN; Protocol PRN Reason: Hypoglycemia Protocol Digoxin (Digoxin) 0.125 mg PO DAILY@1800 [facility] Diltiazem HCl (Cardizem) 30 mg PO Q8 [facility] Last Admin: 12/10/18 06:09 Dose: 30 mg Finasteride (Proscar) 5 mg PO DAILY [facility] Last Admin: 12/10/18 10:33 Dose: 5 mg Furosemide (Lasix) 20 mg IVP BID [facility] Last Admin: 12/09/18 10:33 Dose: Not Given Glucagon (Glucagen Diagnostic Kit) 0 mg IM STAT PRN; Protocol PRN Reason: Hypoglycemia Protocol Dextrose (Dextrose 5% In Water 1000 Ml) 1,000 mls @ 0 mls/hr IV .Q0M PRN; Protocol PRN Reason: Hypoglycemia Protocol Azithromycin 500 mg/ Sodium (Chloride) 250 mls @ 250 mls/hr IVPB DAILY [facility]; Protocol Last Admin: 12/10/18 10:34 Dose: 250 mls/hr Ceftriaxone Sodium 1 gm/ (Sodium Chloride) 100 mls @ 100 mls/hr IVPB Q12H [facility]; Protocol Last Admin: 12/10/18 06:09 Dose: 100 mls/hr Insulin Aspart (Novolog) 0 unit SC ACHS [facility]; Protocol Last Admin: 12/10/18 07:59 Dose: 2 u Lactulose (Enulose) 20 gm PO HS [facility] Lisinopril (Zestril) 20 mg PO DAILY [facility] Last Admin: 12/09/18 10:34 Dose: Not Given Metformin HCl (Glucophage) 500 mg PO BID [facility] Last Admin: 12/09/18 10:28 Dose: 500 mg Pantoprazole Sodium (Protonix Ec Tab) 40 mg PO DAILY [facility] Last Admin: 12/10/18 10:34 Dose: 40 mg Sitagliptin Phosphate (Januvia) 25 mg PO DAILY [facility] Last Admin: 12/10/18 10:30 Dose: 25 mg Tamsulosin HCl (Flomax) 0.4 mg PO DAILY [facility] Last Admin: 12/10/18 10:31 Dose: 0.4 mg - Labs Labs: 12/09/18 07:35 12/10/18 08:31 PT 22.0 SECONDS (9.7-12.2) H 12/10/18 08:31 INR 2.0 12/10/18 08:31 APTT 33 SECONDS (21-34) 12/08/18 07:32
--- NOTE | 2018-12-10 17:38 | US ---
Date of service: 12/09/2018 HISTORY: RONALD, please check for PVR. pt with BPH COMPARISON: None available. TECHNIQUE: Transabdominal sonographic evaluation of the pelvis performed. FINDINGS: The urinary bladder incompletely distended.. Prevoid bladder volume calculated at 103 cc with no significant postvoid residual.. Ureteral jets not visualized. Prostate gland measures approximately 4.5 x 4.3 x 4.6 cm with estimated at approximately 47 cc total volume. Apparent prostatic calcification. FREE FLUID: No significant free fluid noted. OTHER FINDINGS: None. IMPRESSION: Urinary bladder incompletely distended with prevoid volume calculated 103 cc and no significant postvoid residual. Mild prostate gland enlargement with prostatic calcification.
[2018-12-10] MEDS: Digoxin 125 mcg (0.125 mg) Tab PO SCH (17:53)
[2018-12-11] MEDS: (Novolog) Insulin Aspart, Recombinant 100 u/ml 10 ml vial SC SCH ×3 (08:01→16:30)
--- NOTE | 2018-12-11 08:14 | CARD ---
APPROVED REPORT Date of service: 12/07/2018 EKG Measurement Heart [id number] <Conclusion> Atrial fibrillation with RVR LAHB Septal infarct, age undetermined Inferior infarct, age undetermined? Abnormal ECG
[2018-12-11 08:35] LABS: BASO % 0.3 % (0.0-2.0); EOS # 0.4 K/uL (0.0-0.7); EOS % 3.5 % (0.0-4.0); HEMOGLOBIN 10.5 g/dL (12.0-18.0); LYMPH # 0.7 K/uL (1.0-4.3); LYMPH % 6.7 % (20.0-40.0); MEAN CORPUSCULAR HEMOGLOBIN 26.5 pg (27.0-31.0); MEAN CORPUSCULAR HGB CONC 32.3 g/dL (33.0-37.0); MEAN PLATELET VOLUME 9.4 fL (7.2-11.7); MONO % 9.5 % (0.0-10.0); NEUT # 8.3 K/uL (1.8-7.0); PLATELET COUNT 222 K/uL (130-400); RBC 3.98 Mil/uL (4.40-5.90); RED CELL DISTRIBUTION WIDTH 17.4 % (11.5-14.5); WHITE BLOOD COUNT 10.4 K/uL (4.8-10.8)
[2018-12-11 08:55] LABS: CALCIUM 8.8 mg/dl (8.6-10.4)
[2018-12-11 09:51] LABS: BANDS 2 % (0-2); EOSINOPHIL 1 % (0-4); LYMPHOCYTE 7 % (20-40); MONOCYTE 9 % (0-10); NEUTROPHIL 81 % (50-75); TOTAL CELLS COUNTED 100
[2018-12-11 09:52] LABS: PLATELET ESTIMATE NORMAL (NORMAL)
[2018-12-11 09:53] LABS: ANISOCYTOSIS SLIGHT; OVALOCYTES SLIGHT; POIKILOCYTOSIS SLIGHT; TEARDROP CELLS SLIGHT
[2018-12-11] MEDS: Pantoprazole 40 mg EC Tab PO SCH (11:11)
[2018-12-11] MEDS: Azithromycin 500 MG in Sodium Chloride 0.9% 250 ML IVPB SCH (11:13)
--- NOTE | 2018-12-11 12:23 | CP.PCM.PN ---
Subjective - Date & Time of Evaluation Date of Evaluation: 12/11/18 Time of Evaluation: 12:23 - Subjective Subjective: Nephrology Consultation Note: Assessment: Stable Acute Kidney Injury (N17.9) likely due to pneumonia, low BP, ? further compounded by diuretics Anemia hyponatremia DM, HTN with CKD 2 Obesity A fib BPH renal cyst Plan No acute need for renal replacement therapy at this time. Hypertension control with meds as ordered. Maintain hemodynamics stable. Avoid hypotension. Patient not on ACEI/ARB due to recent RONALD. hold bp meds Monitor Input/Output, daily weights and renal function with basic metabolic panel continue with proscar and flomax renal function better Check urine analysis, spot protein/creatinine, albumin/creatinine ratio,bladder sonogram with PVR, urine Na and Osmol check Hep B/C/HIV serology Vit d, PTH level adrenal nodule work up as outpt Dose meds/antibiotics for reduced GFR. Avoid fleets enema/magnesium based la xatives. Avoid nephrotoxins/NSAIDs/ iodinated contrast (unless needed emergently) Glycemic control Further work up/management as per primary team Thanks for allowing me to participate in care of your patient. Will follow patient with you. Please call if any Qs. had d/w team Dr Tony Kim Office: [phone] Chief Complaint; SOB Reason for consult: Acute Kidney Injury HPI: Pt is a 68 M with hx of diabetes Mellitus ( years), hypertension (years) Obesity A fib BPH COPD presented with complaints of SOB and cough, admitted for pnuemonia. also was treated for possible CHF Denies OTC/herbal meds or NSAIDs No recent iodinated contrast exposure. Noted obvious episodes of low BP (94/58). pt not aware about kidney diseas in past. baseline cr 1.2-1.3 in 2015 ex smoker ROS: limited from pt Cardiovascular: No chest pain. Pulmonary: c/o shortness of breath Gastrointestinal: denies abdominal pain No nausea. No vomiting. Genitourinary: mild pain while urinating. Denies blood in urine. All other negative except as mentioned in HPI Physical Examination: General Appearance: Comfortable, in no acute respiratory distress, co-operative . obese Vitals reviewed and noted as below Head; Atraumatic, normocephalic ENT: no ulcers no thrush. Tongue is midline/dry. Oropharynx: no rash or ulcers. EYES: Pupils are equal, round and reactive to light accommodation. Eye muscles and extraocular movement intact. Sclera is anicteric. Neck; supple no lymphadenopathy, no thyromegaly or bruit Lungs: Normal respiratory rate/effort. Breath sounds bilateral equal and few basal crackle/wheeze Heart: Normal rate. s1s2 normal. No rub or gallop. Extremities: no edema. has varicose veins Neurological: Patient is alert, awake and oriented to person, place and time. No focal deficit. Strength bilateral appropriate and equal Skin: Warm and dry. Normal turgor. No rash. Palpitation: Normal elasticity for age Abdomen: Abdomen is soft. Bowel sounds +. There is no abdominal tenderness, no guarding/rigidity no organomegaly Psych: limited insight and normal affect/mood MSK: no joint tenderness or swelling. Digits and nails normal, no deformity. : kidney or bladder not palpable Labs/imaging reviewed. Past medical history, past surgical history, family history, social history, allergy reviewed and noted as below Family hx: no hx of CKD. Rest non-contributory renal sono: b/l cyst Ct chest b/l multifical pna left adrenal nodule Objective - Vital Signs/Intake and Output Vital Signs (last 24 hours): Temp Pulse Resp BP Pulse Ox 98.4 F 63 20 132/76 100 12/11/18 07:35 12/11/18 07:35 12/11/18 07:35 12/11/18 11:11 12/11/18 07:35 - Medications Medications: Current Medications Allopurinol (Zyloprim) 300 mg PO DAILY [facility] Last Admin: 12/09/18 10:23 Dose: 300 mg Carvedilol (Coreg) 6.25 mg PO BID [facility] Last Admin: 12/11/18 11:12 Dose: 6.25 mg Colchicine (Colocrys) 0.6 mg PO DAILY [facility] Last Admin: 12/09/18 10:23 Dose: 0.6 mg Dextrose (Dextrose 50% Inj) 0 ml IV STAT PRN; Protocol PRN Reason: Hypoglycemia Protocol Dextrose (Glutose 15) 0 gm PO ONCE PRN; Protocol PRN Reason: Hypoglycemia Protocol Digoxin (Digoxin) 0.125 mg PO DAILY@1800 [facility] Last Admin: 12/10/18 17:53 Dose: 0.125 mg Diltiazem HCl (Cardizem) 30 mg PO Q8 [facility] Last Admin: 12/11/18 05:35 Dose: 30 mg Finasteride (Proscar) 5 mg PO DAILY [facility] Last Admin: 12/11/18 11:10 Dose: 5 mg Furosemide (Lasix) 40 mg PO DAILY [facility] Last Admin: 12/11/18 11:11 Dose: 40 mg Glucagon (Glucagen Diagnostic Kit) 0 mg IM STAT PRN; Protocol PRN Reason: Hypoglycemia Protocol Azithromycin 500 mg/ Sodium (Chloride) 250 mls @ 250 mls/hr IVPB DAILY [facility]; Protocol Last Admin: 12/11/18 11:13 Dose: 250 mls/hr Ceftriaxone Sodium 1 gm/ (Sodium Chloride) 100 mls @ 100 mls/hr IVPB Q12H [facility]; Protocol Last Admin: 12/11/18 05:35 Dose: 100 mls/hr Insulin Aspart (Novolog) 0 unit SC ACHS [facility]; Protocol Last Admin: 12/11/18 12:15 Dose: 2 u Lactulose (Enulose) 20 gm PO HS [facility] Last Admin: 12/10/18 21:06 Dose: 20 gm Lisinopril (Zestril) 20 mg PO DAILY [facility] Last Admin: 12/09/18 10:34 Dose: Not Given Metformin HCl (Glucophage) 500 mg PO BID [facility] Last Admin: 12/09/18 10:28 Dose: 500 mg Pantoprazole Sodium (Protonix Ec Tab) 40 mg PO DAILY [facility] Last Admin: 12/11/18 11:11 Dose: 40 mg Sitagliptin Phosphate (Januvia) 25 mg PO DAILY [facility] Last Admin: 12/11/18 11:11 Dose: 25 mg Tamsulosin HCl (Flomax) 0.4 mg PO DAILY [facility] Last Admin: 12/11/18 11:12 Dose: 0.4 mg - Labs Labs: 12/11/18 08:26 12/11/18 08:26 PT 22.0 SECONDS (9.7-12.2) H 12/10/18 08:31 INR 2.0 12/10/18 08:31 APTT 33 SECONDS (21-34) 12/08/18 07:32
--- NOTE | 2018-12-11 15:25 | CP.PCM.PN ---
Subjective - Date & Time of Evaluation Date of Evaluation: 12/11/18 Time of Evaluation: 09:00 - Subjective Subjective: afeb iv rx reordered less sob Objective - Vital Signs/Intake and Output Vital Signs (last 24 hours): Temp Pulse Resp BP Pulse Ox 98.4 F 63 20 132/76 100 12/11/18 07:35 12/11/18 07:35 12/11/18 07:35 12/11/18 11:11 12/11/18 07:35 - Medications Medications: Current Medications Allopurinol (Zyloprim) 300 mg PO DAILY [facility] Last Admin: 12/09/18 10:23 Dose: 300 mg Carvedilol (Coreg) 6.25 mg PO BID [facility] Last Admin: 12/11/18 11:12 Dose: 6.25 mg Colchicine (Colocrys) 0.6 mg PO DAILY [facility] Last Admin: 12/09/18 10:23 Dose: 0.6 mg Dextrose (Dextrose 50% Inj) 0 ml IV STAT PRN; Protocol PRN Reason: Hypoglycemia Protocol Dextrose (Glutose 15) 0 gm PO ONCE PRN; Protocol PRN Reason: Hypoglycemia Protocol Digoxin (Digoxin) 0.125 mg PO DAILY@1800 [facility] Last Admin: 12/10/18 17:53 Dose: 0.125 mg Diltiazem HCl (Cardizem) 30 mg PO Q8 [facility] Last Admin: 12/11/18 14:39 Dose: 30 mg Finasteride (Proscar) 5 mg PO DAILY [facility] Last Admin: 12/11/18 11:10 Dose: 5 mg Furosemide (Lasix) 40 mg PO DAILY [facility] Last Admin: 12/11/18 11:11 Dose: 40 mg Glucagon (Glucagen Diagnostic Kit) 0 mg IM STAT PRN; Protocol PRN Reason: Hypoglycemia Protocol Azithromycin 500 mg/ Sodium (Chloride) 250 mls @ 250 mls/hr IVPB DAILY [facility]; Protocol Last Admin: 12/11/18 11:13 Dose: 250 mls/hr Ceftriaxone Sodium 1 gm/ (Sodium Chloride) 100 mls @ 100 mls/hr IVPB Q12H [facility]; Protocol Last Admin: 12/11/18 05:35 Dose: 100 mls/hr Insulin Aspart (Novolog) 0 unit SC ACHS [facility]; Protocol Last Admin: 12/11/18 12:15 Dose: 2 u Lactulose (Enulose) 20 gm PO HS [facility] Last Admin: 12/10/18 21:06 Dose: 20 gm Lisinopril (Zestril) 20 mg PO DAILY [facility] Last Admin: 12/09/18 10:34 Dose: Not Given Metformin HCl (Glucophage) 500 mg PO BID [facility] Last Admin: 12/09/18 10:28 Dose: 500 mg Pantoprazole Sodium (Protonix Ec Tab) 40 mg PO DAILY [facility] Last Admin: 12/11/18 11:11 Dose: 40 mg Sitagliptin Phosphate (Januvia) 25 mg PO DAILY [facility] Last Admin: 12/11/18 11:11 Dose: 25 mg Tamsulosin HCl (Flomax) 0.4 mg PO DAILY [facility] Last Admin: 12/11/18 11:12 Dose: 0.4 mg - Labs Labs: 12/11/18 08:26 12/11/18 08:26 PT 22.0 SECONDS (9.7-12.2) H 12/10/18 08:31 INR 2.0 12/10/18 08:31 APTT 33 SECONDS (21-34) 12/08/18 07:32 - Constitutional Appears: Well - Head Exam Head Exam: ATRAUMATIC, NORMAL INSPECTION, NORMOCEPHALIC - Eye Exam Eye Exam: EOMI, Normal appearance, PERRL Pupil Exam: NORMAL ACCOMODATION, PERRL - ENT Exam ENT Exam: Mucous Membranes Moist, Normal Exam - Neck Exam Neck Exam: Full ROM, Normal Inspection. absent: Lymphadenopathy - Respiratory Exam Respiratory Exam: Clear to Ausculation Bilateral, NORMAL BREATHING PATTERN - Cardiovascular Exam Cardiovascular Exam: REGULAR RHYTHM, +S1, +S2. absent: Murmur - GI/Abdominal Exam GI & Abdominal Exam: Soft, Normal Bowel Sounds. absent: Tenderness - Rectal Exam Rectal Exam: Deferred - Exam Exam: NORMAL INSPECTION - Extremities Exam Extremities Exam: Full ROM, Normal Capillary Refill, Normal Inspection. absent: Joint Swelling, Pedal Edema - Back Exam Back Exam: NORMAL INSPECTION - Neurological Exam Neurological Exam: Alert, Awake, CN II-XII Intact, Normal Gait, Oriented x3 - Psychiatric Exam Psychiatric exam: Normal Affect, Normal Mood - Skin Skin Exam: Dry, Intact, Normal Color, Warm Assessment and Plan - Assessment and Plan (Free Text) Assessment: cont iv rx for pneumonia/ CHF/ RONALD
[2018-12-11] MEDS: Digoxin 125 mcg (0.125 mg) Tab PO SCH (18:14)
[2018-12-12 02:53] VITALS: RESP 20
[2018-12-12] MEDS: (Novolog) Insulin Aspart, Recombinant 100 u/ml 10 ml vial SC SCH ×4 (07:30→22:33)
--- NOTE | 2018-12-12 08:43 | CP.PCM.PN ---
Subjective - Date & Time of Evaluation Date of Evaluation: 12/12/18 Time of Evaluation: 08:00 - Subjective Subjective: Medicine Progress note for Dr. Morales Patient was seen and examined at bedside in no acute distress. Patient complains of constipation. Patient otherwise denies chest pain, dyspnea, palpations, cough, nausea, vomiting, fevers, headaches or abdominal pain. Objective - Vital Signs/Intake and Output Vital Signs (last 24 hours): Temp Pulse Resp BP Pulse Ox 99.2 F 65 20 133/70 96 12/11/18 23:50 12/12/18 04:00 12/11/18 23:50 12/11/18 23:50 12/11/18 23:50 Intake and Output: 12/12/18 12/12/18 06:59 18:59 Intake Total 700 Balance 700 - Medications Medications: Current Medications Allopurinol (Zyloprim) 300 mg PO DAILY [facility] Last Admin: 12/09/18 10:23 Dose: 300 mg Carvedilol (Coreg) 6.25 mg PO BID [facility] Last Admin: 12/11/18 18:14 Dose: 6.25 mg Colchicine (Colocrys) 0.6 mg PO DAILY [facility] Last Admin: 12/09/18 10:23 Dose: 0.6 mg Dextrose (Dextrose 50% Inj) 0 ml IV STAT PRN; Protocol PRN Reason: Hypoglycemia Protocol Dextrose (Glutose 15) 0 gm PO ONCE PRN; Protocol PRN Reason: Hypoglycemia Protocol Digoxin (Digoxin) 0.125 mg PO DAILY@1800 [facility] Last Admin: 12/11/18 18:14 Dose: 0.125 mg Diltiazem HCl (Cardizem) 30 mg PO Q8 [facility] Last Admin: 12/12/18 06:13 Dose: 30 mg Finasteride (Proscar) 5 mg PO DAILY [facility] Last Admin: 12/11/18 11:10 Dose: 5 mg Furosemide (Lasix) 40 mg PO DAILY [facility] Last Admin: 12/11/18 11:11 Dose: 40 mg Glucagon (Glucagen Diagnostic Kit) 0 mg IM STAT PRN; Protocol PRN Reason: Hypoglycemia Protocol Ceftriaxone Sodium 1 gm/ (Sodium Chloride) 100 mls @ 100 mls/hr IVPB Q12H [facility]; Protocol Last Admin: 12/12/18 06:10 Dose: 100 mls/hr Insulin Aspart (Novolog) 0 unit SC ACHS [facility]; Protocol Last Admin: 12/11/18 16:30 Dose: Not Given Lactulose (Enulose) 20 gm PO HS [facility] Last Admin: 12/11/18 22:16 Dose: 20 gm Lisinopril (Zestril) 20 mg PO DAILY [facility] Last Admin: 12/09/18 10:34 Dose: Not Given Metformin HCl (Glucophage) 500 mg PO BID [facility] Last Admin: 12/09/18 10:28 Dose: 500 mg Pantoprazole Sodium (Protonix Ec Tab) 40 mg PO DAILY [facility] Last Admin: 12/11/18 11:11 Dose: 40 mg Sitagliptin Phosphate (Januvia) 25 mg PO DAILY [facility] Last Admin: 12/11/18 11:11 Dose: 25 mg Tamsulosin HCl (Flomax) 0.4 mg PO DAILY [facility] Last Admin: 12/11/18 11:12 Dose: 0.4 mg - Labs Labs: 12/11/18 08:26 12/11/18 08:26 PT 22.0 SECONDS (9.7-12.2) H 12/10/18 08:31 INR 2.0 12/10/18 08:31 APTT 33 SECONDS (21-34) 12/08/18 07:32 - Constitutional Appears: No Acute Distress - Head Exam Head Exam: ATRAUMATIC, NORMAL INSPECTION - Eye Exam Eye Exam: EOMI, Normal appearance - ENT Exam ENT Exam: Mucous Membranes Moist - Respiratory Exam Respiratory Exam: Clear to Ausculation Bilateral, NORMAL BREATHING PATTERN - Cardiovascular Exam Cardiovascular Exam: REGULAR RHYTHM, +S1, +S2 - GI/Abdominal Exam GI & Abdominal Exam: Soft, Normal Bowel Sounds. absent: Tenderness - Extremities Exam Extremities Exam: Normal Inspection - Neurological Exam Neurological Exam: Alert, Awake, Oriented x3 - Psychiatric Exam Psychiatric exam: Normal Affect - Skin Skin Exam: Normal Color Assessment and Plan - Assessment and Plan (Free Text) Assessment: Plan: This is a 68 yo male, originally from [place], with past medical hx of CHF, HTN, BPH, DM, a fib, presenting with shortness of breath. Community acquired Pneumonia - Leukocytosis (14.1), no bandemia; Lactate within normal range - ID Consult: Dr. Landis --> help appreciated - Images: * CXR: small to moderate left pneumo? small b/l pleural effusion; abnormal opacity at right base; r/o pneumonia; smooth pleural based opacity mid lateral left lung common, nonspecific. * Chest CT: (chest CT was ordered due to cxr findings- no pneumothorax per CT) bilateral calcified pleural plaquing, left greater than right; possibly related to previous sclerotherapy or asbestos exposure; no evidence of pneumothorax; multifocal pneumonia particularly in the right lower lobe, right middle lobe, and posterior lateral left lower lobe. - Influenza and Legionella - negative - Blood Culture: Negative - preliminary - Urine Culture: Negative - f/u Mycoplasma - Procal: 44.62 (elevated) - Medications: * Azithromycin 500mg IV daily (active on 12/08/18) discontinued 12/11/18 * Rocephin 1gm IV Q12h (active on 12/08/18) RONALD - Nephrology consulted: Dr. Samuel --> help appreciated - Medications: * held lisinopril, lasix, metformin, allopurinol, and colchicine - Renal US: No nephrolithiasis or hydronephrosis. Simple cysts in both kidneys, the largest in the left lower pole measures 5.7 x 3.5 x 5.5 cm. Pulmonary edema - Furosemide 20 mg IV BID- held due to elevated cr Congestive Heart failure - Cardiology consult: Dr. Sevilla --> help appreciated - Echo (12/10/18): EF 60-65%; Hypertensive heart disease. Left ventricle systolic function is normal. Thickening of interatrial septum suggests lipomatous hypertrophy. The discontinuity of the interatrial septum is suggestive of an atrial septal defect. - Medications: * Continue home medications: coreg 6.25 BID, lisinopril 20 mg daily (held due to RONALD) * Digoxin 0.25mg IV daily * Furosemide 20mg IV BID- held due to elevated cr Afib - Continue home medication: Warfarin 5mg daily, Coreg 6.25 BID - Digoxin 0.25mg IV daily - Digoxin level 1.2 (wnl) - Cardiology consult. Dr. Sevilla. recs appreciated. - Continue to monitor, on tele Hx of DM - Accuchecks; Hypoglycemia protocol - hA1c 6.4; Lipid Panel wnl - Medications: * Metformin 500 mg bid (held due to ronald) * Januvia 25mg PO daily * ISS Hx of BPH - Continue home medications: finasteride 5 mg daily, flomax .4 mg daily Constipation - Lactulose 20gm po HS - Mineral Oil ordered once Prophylaxis - DVT: Scds, continue home medication Warfarin 5mg PO - GI: Protonix 40 daily Case discussed with Dr. Morales. Suly Oglesby PGY_2
[2018-12-12] MEDS: Pantoprazole 40 mg EC Tab PO SCH (10:03)
[2018-12-12 11:31] LABS: BASO % 0.4 % (0.0-2.0); EOS # 0.4 K/uL (0.0-0.7); EOS % 3.2 % (0.0-4.0); HEMOGLOBIN 10.8 g/dL (12.0-18.0); LYMPH # 0.7 K/uL (1.0-4.3); LYMPH % 6.2 % (20.0-40.0); MEAN CELL VOLUME 82.4 fL (80.0-94.0); MEAN CORPUSCULAR HEMOGLOBIN 25.7 pg (27.0-31.0); MEAN CORPUSCULAR HGB CONC 31.2 g/dL (33.0-37.0); MEAN PLATELET VOLUME 9.1 fL (7.2-11.7); MONO % 8.8 % (0.0-10.0); NEUT # 9.1 K/uL (1.8-7.0); NEUT % 81.4 % (50.0-75.0); PLATELET COUNT 242 K/uL (130-400); RBC 4.21 Mil/uL (4.40-5.90); RED CELL DISTRIBUTION WIDTH 16.7 % (11.5-14.5); WHITE BLOOD COUNT 11.2 K/uL (4.8-10.8)
[2018-12-12 11:48] LABS: ALB/GLOB RATIO 1.3 (1.0-2.1); ALBUMIN 3.7 g/dL (3.5-5.0); ALT/SGPT 27 U/L (21-72); AST/SGOT 21 U/L (17-59); BLOOD UREA NITROGEN 26 mg/dL (9-20); CALCIUM 8.8 mg/dl (8.6-10.4); GFR NON-AFRICAN AMERICAN 50
[2018-12-12] MEDS ORDERED: Mineral Oil Enema 135 ml RC ONE (12:00)
[2018-12-12 12:21] LABS: BANDS 1 % (0-2); EOSINOPHIL 2 % (0-4); LYMPHOCYTE 8 % (20-40); MONOCYTE 8 % (0-10); NEUTROPHIL 80 % (50-75); REACTIVE LYMPHOCYTES 1 % (0-0); TOTAL CELLS COUNTED 100
[2018-12-12 12:22] LABS: ANISOCYTOSIS SLIGHT; HYPOCHROMIC SLIGHT; OVALOCYTES SLIGHT; PLATELET ESTIMATE NORMAL (NORMAL)
[2018-12-12 18:23] VITALS: PULSE 93
[2018-12-12] MEDS: Digoxin 125 mcg (0.125 mg) Tab PO SCH (18:23)
[2018-12-13] MEDS: (Novolog) Insulin Aspart, Recombinant 100 u/ml 10 ml vial SC SCH ×2 (07:00→13:15)
[2018-12-13 07:52] LABS: BASO % 0.4 % (0.0-2.0); EOS # 0.5 K/uL (0.0-0.7); EOS % 4.9 % (0.0-4.0); HEMOGLOBIN 10.8 g/dL (12.0-18.0); LYMPH # 0.8 K/uL (1.0-4.3); LYMPH % 8.6 % (20.0-40.0); MEAN CELL VOLUME 81.8 fL (80.0-94.0); MEAN CORPUSCULAR HEMOGLOBIN 26.2 pg (27.0-31.0); MEAN PLATELET VOLUME 8.9 fL (7.2-11.7); MONO # 0.9 K/uL (0.0-0.8); MONO % 8.7 % (0.0-10.0); NEUT # 7.6 K/uL (1.8-7.0); NEUT % 77.4 % (50.0-75.0); PLATELET COUNT 261 K/uL (130-400); RBC 4.11 Mil/uL (4.40-5.90); WHITE BLOOD COUNT 9.8 K/uL (4.8-10.8)
[2018-12-13 08:23] LABS: ALB/GLOB RATIO 1.2 (1.0-2.1); ALBUMIN 3.4 g/dL (3.5-5.0); ALT/SGPT 31 U/L (21-72); AST/SGOT 22 U/L (17-59); BLOOD UREA NITROGEN 27 mg/dL (9-20); CALCIUM 9.1 mg/dl (8.6-10.4); GFR NON-AFRICAN AMERICAN 50
[2018-12-13 10:28] LABS: EOSINOPHIL 3 % (0-4); LYMPHOCYTE 11 % (20-40); MONOCYTE 10 % (0-10); MYELOCYTE 1 % (0-0); NEUTROPHIL 75 % (50-75); TOTAL CELLS COUNTED 100
[2018-12-13 10:29] LABS: PLATELET ESTIMATE NORMAL (NORMAL)
[2018-12-13 10:30] LABS: ANISOCYTOSIS SLIGHT
[2018-12-13 10:36] LABS: OVALOCYTES SLIGHT
[2018-12-13] MEDS: Pantoprazole 40 mg EC Tab PO SCH (10:46)
--- NOTE | 2018-12-13 10:48 | CP.PCM.PN ---
Subjective - Date & Time of Evaluation Date of Evaluation: 12/13/18 Time of Evaluation: 08:00 - Subjective Subjective: less sob no fever Objective - Vital Signs/Intake and Output Vital Signs (last 24 hours): Temp Pulse Resp BP Pulse Ox 97.9 F 66 20 128/75 100 12/13/18 07:35 12/13/18 07:35 12/13/18 07:35 12/13/18 10:45 12/13/18 07:35 - Medications Medications: Current Medications Acetaminophen (Tylenol 325mg Tab) 650 mg PO Q4 PRN PRN Reason: Pain, moderate (4-7) Last Admin: 12/13/18 07:03 Dose: 650 mg Allopurinol (Zyloprim) 300 mg PO DAILY [facility] Last Admin: 12/09/18 10:23 Dose: 300 mg Carvedilol (Coreg) 6.25 mg PO BID [facility] Last Admin: 12/13/18 10:46 Dose: 6.25 mg Colchicine (Colocrys) 0.6 mg PO DAILY [facility] Last Admin: 12/09/18 10:23 Dose: 0.6 mg Dextrose (Dextrose 50% Inj) 0 ml IV STAT PRN; Protocol PRN Reason: Hypoglycemia Protocol Dextrose (Glutose 15) 0 gm PO ONCE PRN; Protocol PRN Reason: Hypoglycemia Protocol Digoxin (Digoxin) 0.125 mg PO DAILY@1800 [facility] Last Admin: 12/12/18 18:23 Dose: 0.125 mg Diltiazem HCl (Cardizem) 30 mg PO Q8 [facility] Last Admin: 12/13/18 07:01 Dose: 30 mg Finasteride (Proscar) 5 mg PO DAILY [facility] Last Admin: 12/13/18 10:46 Dose: 5 mg Furosemide (Lasix) 40 mg PO DAILY [facility] Last Admin: 12/13/18 10:45 Dose: 40 mg Glucagon (Glucagen Diagnostic Kit) 0 mg IM STAT PRN; Protocol PRN Reason: Hypoglycemia Protocol Ceftriaxone Sodium 1 gm/ (Sodium Chloride) 100 mls @ 100 mls/hr IVPB Q12H [facility]; Protocol Last Admin: 12/13/18 07:00 Dose: 100 mls/hr Insulin Aspart (Novolog) 0 unit SC ACHS [facility]; Protocol Last Admin: 12/13/18 07:00 Dose: Not Given Lactulose (Enulose) 20 gm PO HS [facility] Last Admin: 12/12/18 22:33 Dose: 20 gm Lisinopril (Zestril) 20 mg PO DAILY [facility] Last Admin: 12/09/18 10:34 Dose: Not Given Metformin HCl (Glucophage) 500 mg PO BID [facility] Last Admin: 12/09/18 10:28 Dose: 500 mg Pantoprazole Sodium (Protonix Ec Tab) 40 mg PO DAILY [facility] Last Admin: 12/13/18 10:46 Dose: 40 mg Sitagliptin Phosphate (Januvia) 25 mg PO DAILY [facility] Last Admin: 12/13/18 10:46 Dose: 25 mg Tamsulosin HCl (Flomax) 0.4 mg PO DAILY [facility] Last Admin: 12/13/18 10:46 Dose: 0.4 mg - Labs Labs: 12/13/18 07:34 12/13/18 07:34 PT 22.0 SECONDS (9.7-12.2) H 12/10/18 08:31 INR 2.0 12/10/18 08:31 APTT 33 SECONDS (21-34) 12/08/18 07:32 - Constitutional Appears: Well - Head Exam Head Exam: ATRAUMATIC, NORMAL INSPECTION, NORMOCEPHALIC - Eye Exam Eye Exam: EOMI, Normal appearance, PERRL Pupil Exam: NORMAL ACCOMODATION, PERRL - ENT Exam ENT Exam: Mucous Membranes Moist, Normal Exam - Neck Exam Neck Exam: Full ROM, Normal Inspection. absent: Lymphadenopathy - Respiratory Exam Respiratory Exam: Clear to Ausculation Bilateral, NORMAL BREATHING PATTERN - Cardiovascular Exam Cardiovascular Exam: REGULAR RHYTHM, +S1, +S2. absent: Murmur - GI/Abdominal Exam GI & Abdominal Exam: Soft, Normal Bowel Sounds. absent: Tenderness - Rectal Exam Rectal Exam: Deferred - Exam Exam: NORMAL INSPECTION - Extremities Exam Extremities Exam: Full ROM, Normal Capillary Refill, Normal Inspection. absent: Joint Swelling, Pedal Edema - Back Exam Back Exam: NORMAL INSPECTION - Neurological Exam Neurological Exam: Alert, Awake, CN II-XII Intact, Normal Gait, Oriented x3 - Psychiatric Exam Psychiatric exam: Normal Affect, Normal Mood - Skin Skin Exam: Dry, Intact, Normal Color, Warm Assessment and Plan (1) COPD (chronic obstructive pulmonary disease) Status: Acute (2) Pneumonia Status: Acute (3) A-fib Status: Acute (4) Pleural effusion Status: Acute (5) CHF (congestive heart failure) Status: Acute - Assessment and Plan (Free Text) Assessment: cont iv rx as ordered
--- NOTE | 2018-12-13 10:56 | CP.PCM.PN ---
Subjective - Date & Time of Evaluation Date of Evaluation: 12/13/18 Time of Evaluation: 10:55 - Subjective Subjective: Nephrology Consultation Note: Assessment: Stable Acute Kidney Injury (N17.9) likely due to pneumonia, low BP, ? further compounded by diuretics: IMPROVED Anemia hyponatremia DM, HTN with CKD 2 Obesity A fib BPH renal cyst Plan No acute need for renal replacement therapy at this time. Hypertension control with meds as ordered. Maintain hemodynamics stable. Avoid hypotension. Patient not on ACEI/ARB due to recent RONALD.can resume if BP high Monitor Input/Output, daily weights and renal function with basic metabolic panel continue with proscar and flomax renal function better okay to resume lasix from renal perspective Check urine analysis, spot protein/creatinine, albumin/creatinine ratio,bladder sonogram with PVR, urine Na and Osmol check Hep B/C/HIV serology Vit d, PTH level adrenal nodule work up as outpt Dose meds/antibiotics for reduced GFR. Avoid fleets enema/magnesium based laxatives. Avoid nephrotoxins/NSAIDs/ iodinated contrast (unless needed emergently) Glycemic control Further work up/management as per primary team Thanks for allowing me to participate in care of your patient. Will follow patient with you. Please call if any Qs. had d/w team Dr Tony Kim Office: [phone] Chief Complaint; SOB Reason for consult: Acute Kidney Injury HPI: Pt is a 68 M with hx of diabetes Mellitus ( years), hypertension (years) Obesity A fib BPH COPD presented with complaints of SOB and cough, admitted for pnuemonia. also was treated for possible CHF Denies OTC/herbal meds or NSAIDs No recent iodinated contrast exposure. Noted obvious episodes of low BP (94/58). pt not aware about kidney diseas in past. baseline cr 1.2-1.3 in 2015 ex smoker ROS: feels better Cardiovascular: No chest pain. Pulmonary: no shortness of breath Gastrointestinal: denies abdominal pain No nausea. No vomiting. Genitourinary: mild pain while urinating. Denies blood in urine. All other negative except as mentioned in HPI Physical Examination: General Appearance: Comfortable, in no acute respiratory distress, co-operative . obese Vitals reviewed and noted as below Head; Atraumatic, normocephalic ENT: no ulcers no thrush. Tongue is midline/dry. Oropharynx: no rash or ulcers. EYES: Pupils are equal, round and reactive to light accommodation. Eye muscles and extraocular movement intact. Sclera is anicteric. Neck; supple no lymphadenopathy, no thyromegaly or bruit Lungs: Normal respiratory rate/effort. Breath sounds bilateral equal and clear Heart: Normal rate. s1s2 normal. No rub or gallop. Extremities: no edema. has varicose veins Neurological: Patient is alert, awake and oriented to person, place and time. No focal deficit. Strength bilateral appropriate and equal Skin: Warm and dry. Normal turgor. No rash. Palpitation: Normal elasticity for age Abdomen: Abdomen is soft. Bowel sounds +. There is no abdominal tenderness, no guarding/rigidity no organomegaly Psych: limited insight and normal affect/mood MSK: no joint tenderness or swelling. Digits and nails normal, no deformity. : kidney or bladder not palpable Labs/imaging reviewed. Past medical history, past surgical history, family history, social history, allergy reviewed and noted as below Family hx: no hx of CKD. Rest non-contributory renal sono: b/l cyst Ct chest b/l multifical pna left adrenal nodule Objective - Vital Signs/Intake and Output Vital Signs (last 24 hours): Temp Pulse Resp BP Pulse Ox 97.9 F 66 20 128/75 100 12/13/18 07:35 12/13/18 07:35 12/13/18 07:35 12/13/18 10:45 12/13/18 07:35 - Medications Medications: Current Medications Acetaminophen (Tylenol 325mg Tab) 650 mg PO Q4 PRN PRN Reason: Pain, moderate (4-7) Last Admin: 12/13/18 07:03 Dose: 650 mg Allopurinol (Zyloprim) 300 mg PO DAILY [facility] Last Admin: 12/09/18 10:23 Dose: 300 mg Carvedilol (Coreg) 6.25 mg PO BID [facility] Last Admin: 12/13/18 10:46 Dose: 6.25 mg Colchicine (Colocrys) 0.6 mg PO DAILY [facility] Last Admin: 12/09/18 10:23 Dose: 0.6 mg Dextrose (Dextrose 50% Inj) 0 ml IV STAT PRN; Protocol PRN Reason: Hypoglycemia Protocol Dextrose (Glutose 15) 0 gm PO ONCE PRN; Protocol PRN Reason: Hypoglycemia Protocol Digoxin (Digoxin) 0.125 mg PO DAILY@1800 [facility] Last Admin: 12/12/18 18:23 Dose: 0.125 mg Diltiazem HCl (Cardizem) 30 mg PO Q8 [facility] Last Admin: 12/13/18 07:01 Dose: 30 mg Finasteride (Proscar) 5 mg PO DAILY [facility] Last Admin: 12/13/18 10:46 Dose: 5 mg Furosemide (Lasix) 40 mg PO DAILY [facility] Last Admin: 12/13/18 10:45 Dose: 40 mg Glucagon (Glucagen Diagnostic Kit) 0 mg IM STAT PRN; Protocol PRN Reason: Hypoglycemia Protocol Ceftriaxone Sodium 1 gm/ (Sodium Chloride) 100 mls @ 100 mls/hr IVPB Q12H [facility]; Protocol Last Admin: 12/13/18 07:00 Dose: 100 mls/hr Insulin Aspart (Novolog) 0 unit SC ACHS [facility]; Protocol Last Admin: 12/13/18 07:00 Dose: Not Given Lactulose (Enulose) 20 gm PO HS [facility] Last Admin: 12/12/18 22:33 Dose: 20 gm Lisinopril (Zestril) 20 mg PO DAILY [facility] Last Admin: 12/09/18 10:34 Dose: Not Given Metformin HCl (Glucophage) 500 mg PO BID [facility] Last Admin: 12/09/18 10:28 Dose: 500 mg Pantoprazole Sodium (Protonix Ec Tab) 40 mg PO DAILY [facility] Last Admin: 12/13/18 10:46 Dose: 40 mg Sitagliptin Phosphate (Januvia) 25 mg PO DAILY [facility] Last Admin: 12/13/18 10:46 Dose: 25 mg Tamsulosin HCl (Flomax) 0.4 mg PO DAILY [facility] Last Admin: 12/13/18 10:46 Dose: 0.4 mg - Labs Labs: 12/13/18 07:34 12/13/18 07:34 PT 22.0 SECONDS (9.7-12.2) H 12/10/18 08:31 INR 2.0 12/10/18 08:31 APTT 33 SECONDS (21-34) 12/08/18 07:32
--- NOTE | 2018-12-13 13:43 | CP.PCM.PN ---
Subjective - Date & Time of Evaluation Date of Evaluation: 12/13/18 Time of Evaluation: 13:45 - Subjective Subjective: Progress note. Dr. Morales. Pt seen and examined at bedside. No acute distress. Doing better. No fevers, chills, vomiting, diarrhea. Objective - Vital Signs/Intake and Output Vital Signs (last 24 hours): Temp Pulse Resp BP Pulse Ox 97.9 F 66 20 128/75 100 12/13/18 07:35 12/13/18 07:35 12/13/18 07:35 12/13/18 10:45 12/13/18 07:35 - Medications Medications: Current Medications Acetaminophen (Tylenol 325mg Tab) 650 mg PO Q4 PRN PRN Reason: Pain, moderate (4-7) Last Admin: 12/13/18 07:03 Dose: 650 mg Allopurinol (Zyloprim) 300 mg PO DAILY [facility] Last Admin: 12/09/18 10:23 Dose: 300 mg Carvedilol (Coreg) 6.25 mg PO BID [facility] Last Admin: 12/13/18 10:46 Dose: 6.25 mg Colchicine (Colocrys) 0.6 mg PO DAILY [facility] Last Admin: 12/09/18 10:23 Dose: 0.6 mg Dextrose (Dextrose 50% Inj) 0 ml IV STAT PRN; Protocol PRN Reason: Hypoglycemia Protocol Dextrose (Glutose 15) 0 gm PO ONCE PRN; Protocol PRN Reason: Hypoglycemia Protocol Digoxin (Digoxin) 0.125 mg PO DAILY@1800 [facility] Last Admin: 12/12/18 18:23 Dose: 0.125 mg Diltiazem HCl (Cardizem) 30 mg PO Q8 [facility] Last Admin: 12/13/18 13:14 Dose: 30 mg Finasteride (Proscar) 5 mg PO DAILY [facility] Last Admin: 12/13/18 10:46 Dose: 5 mg Furosemide (Lasix) 40 mg PO DAILY [facility] Last Admin: 12/13/18 10:45 Dose: 40 mg Glucagon (Glucagen Diagnostic Kit) 0 mg IM STAT PRN; Protocol PRN Reason: Hypoglycemia Protocol Ceftriaxone Sodium 1 gm/ (Sodium Chloride) 100 mls @ 100 mls/hr IVPB Q12H [facility]; Protocol Last Admin: 12/13/18 07:00 Dose: 100 mls/hr Insulin Aspart (Novolog) 0 unit SC ACHS [facility]; Protocol Last Admin: 12/13/18 13:15 Dose: 3 u Lactulose (Enulose) 20 gm PO HS [facility] Last Admin: 12/12/18 22:33 Dose: 20 gm Lisinopril (Zestril) 20 mg PO DAILY [facility] Last Admin: 12/09/18 10:34 Dose: Not Given Metformin HCl (Glucophage) 500 mg PO BID [facility] Last Admin: 12/09/18 10:28 Dose: 500 mg Pantoprazole Sodium (Protonix Ec Tab) 40 mg PO DAILY [facility] Last Admin: 12/13/18 10:46 Dose: 40 mg Sitagliptin Phosphate (Januvia) 25 mg PO DAILY [facility] Last Admin: 12/13/18 10:46 Dose: 25 mg Tamsulosin HCl (Flomax) 0.4 mg PO DAILY [facility] Last Admin: 12/13/18 10:46 Dose: 0.4 mg - Labs Labs: 12/13/18 07:34 12/13/18 07:34 PT 22.0 SECONDS (9.7-12.2) H 12/10/18 08:31 INR 2.0 12/10/18 08:31 APTT 33 SECONDS (21-34) 12/08/18 07:32 - Constitutional Appears: Non-toxic, No Acute Distress - Head Exam Head Exam: ATRAUMATIC, NORMAL INSPECTION, NORMOCEPHALIC - Eye Exam Eye Exam: EOMI - ENT Exam ENT Exam: Mucous Membranes Moist - Neck Exam Neck Exam: Full ROM, Normal Inspection - Respiratory Exam Respiratory Exam: absent: Respiratory Distress - Cardiovascular Exam Cardiovascular Exam: +S1, +S2 - GI/Abdominal Exam GI & Abdominal Exam: Soft, Normal Bowel Sounds. absent: Tenderness - Extremities Exam Extremities Exam: Full ROM, Normal Inspection - Back Exam Back Exam: NORMAL INSPECTION - Neurological Exam Neurological Exam: Alert, Awake, CN II-XII Intact, Oriented x3 - Psychiatric Exam Psychiatric exam: Normal Affect, Normal Mood - Skin Skin Exam: Dry, Intact, Normal Color, Warm Assessment and Plan - Assessment and Plan (Free Text) Assessment: This is a 68 yo male with This is a 68 yo male, originally from [place], with past medical hx of CHF, HTN, BPH, DM, a fib, presenting with shortness of breath. Community acquired Pneumonia -leukocytosis resolved. - ID Consult: Dr. Landis --> help appreciated - Images: * CXR: small to moderate left pneumo? small b/l pleural effusion; abnormal opac ity at right base; r/o pneumonia; smooth pleural based opacity mid lateral left lung common, nonspecific. * Chest CT: (chest CT was ordered due to cxr findings- no pneumothorax per CT) bilateral calcified pleural plaquing, left greater than right; possibly related to previous sclerotherapy or asbestos exposure; no evidence of pneumothorax; multifocal pneumonia particularly in the right lower lobe, right middle lobe, and posterior lateral left lower lobe. - Influenza and Legionella - negative - Blood Culture: Negative - pre - Urine Culture: Negative - f/u Mycoplasma - Procal: 44.62 (elevated) - Medications: * Azithromycin 500mg IV daily (active on 12/08/18) discontinued 12/11/18 * Rocephin 1gm IV Q12h (active on 12/08/18) RONALD - Nephrology consulted: Dr. Samuel --> help appreciated - Medications: * held lisinopril, lasix, metformin, allopurinol, and colchicine - Renal US: No nephrolithiasis or hydronephrosis. Simple cysts in both kidneys, the largest in the left lower pole measures 5.7 x 3.5 x 5.5 cm. Pulmonary edema - Furosemide 20 mg IV BID- held due to elevated cr Congestive Heart failure - Cardiology consult: Dr. Sevilla --> help appreciated - Echo (12/10/18): EF 60-65%; Hypertensive heart disease. Left ventricle systolic function is normal. Thickening of interatrial septum suggests lipomatous hypertrophy. The discontinuity of the interatrial septum is suggestive of an atrial septal defect. - Medications: * Continue home medications: coreg 6.25 BID, lisinopril 20 mg daily (held due to RONALD) * Digoxin 0.25mg IV daily * Furosemide 20mg IV BID- held due to elevated cr Afib - Continue home medication: Warfarin 5mg daily, Coreg 6.25 BID - Digoxin 0.25mg IV daily - Digoxin level 1.2 (wnl) - Cardiology consult. Dr. Sevilla. recs appreciated. - Continue to monitor, on tele Hx of DM - Accuchecks; Hypoglycemia protocol - hA1c 6.4; Lipid Panel wnl - Medications: * Metformin 500 mg bid (held due to ronald) * Januvia 25mg PO daily * ISS Hx of BPH - Continue home medications: finasteride 5 mg daily, flomax .4 mg daily Constipation - Lactulose 20 gm po HS - Mineral Oil ordered once Prophylaxis - DVT: Scds, continue home medication Warfarin 5mg PO - GI: Protonix [address] Morales
[2018-12-13 15:56] VITALS: BP 160/90; PULSE 98; TEMP 98.2; O2SAT 98
--- NOTE | 2018-12-16 06:36 | DS ---
HISTORY OF PRESENT ILLNESS: The patient was admitted to the hospital with complaints of shortness of breath, weakness. The patient was found to have pneumonia, started on IV antibiotic. Congestive heart failure. The patient developed , the patient was given IV fluids with good response . The patient is discharged to be followed up as outpatient. DIAGNOSES: Pneumonia, . Ethan Morales MD
--- NOTE | 2018-12-21 07:15 | PN ---
DATE: 12/20/2018 LATE ENTRY: This patient has congestive heart failure, systolic secondary to hypertension and disease. Ethan Morales MD
== END 2018-12-13 16:32 | disposition home or self-care (01) | DRG 193 ==
LOC: C.ER 17:48 → C.9E 19:52 → C.6T 20:18
PROVIDERS: ADMIT Internal Medicine Pulmonary Disease; ATTEND Internal Medicine Pulmonary Disease
DX: J18.8 Other pneumonia, unspecified organism (principal); I50.23 Acute on chronic systolic (congestive) heart failure; I13.0 Hypertensive heart and chronic kidney disease with heart failure and stage 1 through stage 4 chronic kidney disease, or unspecified chronic kidney disease; J44.0 Chronic obstructive pulmonary disease with (acute) lower respiratory infection; N17.9 Acute kidney failure, unspecified; E87.1 Hypo-osmolality and hyponatremia; I95.9 Hypotension, unspecified; E11.22 Type 2 diabetes mellitus with diabetic chronic kidney disease; N18.2 Chronic kidney disease, stage 2 (mild); N28.1 Cyst of kidney, acquired; N40.0 Benign prostatic hyperplasia without lower urinary tract symptoms; E27.8 Other specified disorders of adrenal gland; I25.10 Atherosclerotic heart disease of native coronary artery without angina pectoris; I48.2 Chronic atrial fibrillation; E66.9 Obesity, unspecified; K59.00 Constipation, unspecified; D64.9 Anemia, unspecified; Z77.090 Contact with and (suspected) exposure to asbestos; Z79.01 Long term (current) use of anticoagulants; Z79.84 Long term (current) use of oral hypoglycemic drugs; Z79.899 Other long term (current) drug therapy; Z87.891 Personal history of nicotine dependence